=== PATIENT | male | born 1980 | race Caucasian/White ===

== ENCOUNTER → 2019-02-18 12:46 | Outpatient (BNVA) | payer MEDICAID, SELFPAY | PROVIDERS: Family Provider Internal Medicine; PCP Internal Medicine; Visit Provider Nurse Practitioner Psychiatric/Mental Health | DX: F25.1 Schizoaffective disorder, depressive type (principal); F43.12 Post-traumatic stress disorder, chronic; G47.33 Obstructive sleep apnea (adult) (pediatric); F17.210 Nicotine dependence, cigarettes, uncomplicated; F79 Unspecified intellectual disabilities | CPT/HCPCS: 99213 ==

== ENCOUNTER → 2019-02-22 13:52 | Outpatient (BNVA) | payer MEDICAID, SELFPAY | PROVIDERS: Family Provider Internal Medicine; PCP Internal Medicine; Visit Provider Social Worker | DX: F25.1 Schizoaffective disorder, depressive type (principal); F43.12 Post-traumatic stress disorder, chronic; F17.210 Nicotine dependence, cigarettes, uncomplicated | CPT/HCPCS: 90834 ==

== ENCOUNTER → 2019-03-17 10:32 | Outpatient (BNVA) | payer MEDICAID, SELFPAY | PROVIDERS: Family Provider Internal Medicine; PCP Internal Medicine; Visit Provider Social Worker | DX: F25.1 Schizoaffective disorder, depressive type (principal); F43.12 Post-traumatic stress disorder, chronic; F17.210 Nicotine dependence, cigarettes, uncomplicated | CPT/HCPCS: 90834 ==

== ENCOUNTER → 2019-03-29 10:39 | Outpatient (BNVA) | payer MEDICAID, SELFPAY | PROVIDERS: Family Provider Internal Medicine; PCP Internal Medicine; Visit Provider Social Worker | DX: F25.1 Schizoaffective disorder, depressive type (principal); F43.12 Post-traumatic stress disorder, chronic; F17.210 Nicotine dependence, cigarettes, uncomplicated | CPT/HCPCS: 90834 ==

== ENCOUNTER → 2019-04-12 11:00 | Outpatient (BNVA) | payer MEDICAID, SELFPAY | PROVIDERS: Family Provider Internal Medicine; PCP Internal Medicine; Visit Provider Social Worker | DX: F25.1 Schizoaffective disorder, depressive type (principal); F43.12 Post-traumatic stress disorder, chronic; F17.210 Nicotine dependence, cigarettes, uncomplicated | CPT/HCPCS: 90834 ==

== ENCOUNTER → 2019-04-15 10:45 | Outpatient (BNVA) | payer MEDICAID, SELFPAY | PROVIDERS: Family Provider Internal Medicine; PCP Internal Medicine; Visit Provider Nurse Practitioner Psychiatric/Mental Health | DX: F25.1 Schizoaffective disorder, depressive type (principal); F43.12 Post-traumatic stress disorder, chronic; F17.210 Nicotine dependence, cigarettes, uncomplicated; F79 Unspecified intellectual disabilities; Z79.899 Other long term (current) drug therapy | CPT/HCPCS: 99213 ==

== ENCOUNTER → 2019-04-22 11:36 | Outpatient (BNVA) | payer MEDICAID, SELFPAY | PROVIDERS: Family Provider Internal Medicine; PCP Internal Medicine; Visit Provider Nurse Practitioner Psychiatric/Mental Health | DX: Z79.899 Other long term (current) drug therapy (principal) | CPT/HCPCS: 80053; 80061; 83036; 85025 ==

== ENCOUNTER → 2019-04-28 10:35 | Outpatient (BNVA) | payer MEDICAID, SELFPAY | PROVIDERS: Family Provider Internal Medicine; PCP Internal Medicine; Visit Provider Social Worker | DX: F43.12 Post-traumatic stress disorder, chronic (principal); F25.1 Schizoaffective disorder, depressive type; F79 Unspecified intellectual disabilities | CPT/HCPCS: 90834 ==

== ENCOUNTER → 2019-05-13 07:14 | Outpatient (BNVA) | payer MEDICAID, SELFPAY | PROVIDERS: Family Provider Internal Medicine; PCP Internal Medicine; Visit Provider Nurse Practitioner Psychiatric/Mental Health | DX: F43.12 Post-traumatic stress disorder, chronic; F17.210 Nicotine dependence, cigarettes, uncomplicated; F79 Unspecified intellectual disabilities; F25.1 Schizoaffective disorder, depressive type | CPT/HCPCS: 99213 ==

== ENCOUNTER → 2019-06-10 08:13 | Outpatient (BNVA) | payer MEDICAID, SELFPAY | PROVIDERS: Family Provider Internal Medicine; PCP Internal Medicine; Visit Provider Nurse Practitioner Psychiatric/Mental Health | DX: F25.1 Schizoaffective disorder, depressive type (principal); F43.12 Post-traumatic stress disorder, chronic; F17.210 Nicotine dependence, cigarettes, uncomplicated; F79 Unspecified intellectual disabilities | CPT/HCPCS: 99213 ==

== ENCOUNTER → 2019-06-16 09:06 | Outpatient (BNVA) | payer MEDICAID, SELFPAY | PROVIDERS: Family Provider Internal Medicine; Visit Provider Social Worker | DX: F79 Unspecified intellectual disabilities (principal); F43.12 Post-traumatic stress disorder, chronic; F25.1 Schizoaffective disorder, depressive type | CPT/HCPCS: 90832 ==

== ENCOUNTER → 2019-07-08 08:19 | Outpatient (BNVA) | payer MEDICAID, SELFPAY | PROVIDERS: Family Provider Internal Medicine; Visit Provider Nurse Practitioner Psychiatric/Mental Health | DX: F25.1 Schizoaffective disorder, depressive type (principal); F43.12 Post-traumatic stress disorder, chronic; F17.210 Nicotine dependence, cigarettes, uncomplicated; F79 Unspecified intellectual disabilities | CPT/HCPCS: 99213 ==

== ENCOUNTER → 2019-07-14 08:03 | Outpatient (BNVA) | payer MEDICAID, SELFPAY | PROVIDERS: Family Provider Internal Medicine; Visit Provider Social Worker | DX: F25.1 Schizoaffective disorder, depressive type (principal); F43.12 Post-traumatic stress disorder, chronic; F79 Unspecified intellectual disabilities | CPT/HCPCS: 90832 ==

== ENCOUNTER → 2019-07-23 07:47 | Outpatient (BNVA) | payer MEDICAID, SELFPAY | PROVIDERS: Family Provider Internal Medicine; Visit Provider Counselor Mental Health | DX: F79 Unspecified intellectual disabilities (principal); F43.12 Post-traumatic stress disorder, chronic; F25.1 Schizoaffective disorder, depressive type | CPT/HCPCS: 90832 ==

== ENCOUNTER → 2019-07-30 08:03 | Outpatient (BNVA) | payer MEDICAID, SELFPAY | PROVIDERS: Family Provider Internal Medicine; Visit Provider Counselor Mental Health | DX: F43.12 Post-traumatic stress disorder, chronic (principal); F25.1 Schizoaffective disorder, depressive type; F79 Unspecified intellectual disabilities | CPT/HCPCS: 90832 ==

== ENCOUNTER → 2019-08-05 13:06 | Outpatient (BNVA) | payer MEDICAID, SELFPAY | PROVIDERS: Family Provider Internal Medicine; Visit Provider Nurse Practitioner Psychiatric/Mental Health | DX: F43.12 Post-traumatic stress disorder, chronic (principal); F17.210 Nicotine dependence, cigarettes, uncomplicated; F25.1 Schizoaffective disorder, depressive type; F79 Unspecified intellectual disabilities | CPT/HCPCS: 96372; 99214 ==

== ENCOUNTER → 2019-08-09 08:01 | Outpatient (BNVA) | payer MEDICAID, SELFPAY | PROVIDERS: Family Provider Internal Medicine; Visit Provider Counselor Mental Health | DX: F79 Unspecified intellectual disabilities (principal); F43.12 Post-traumatic stress disorder, chronic; F25.1 Schizoaffective disorder, depressive type | CPT/HCPCS: 90832 ==

== ENCOUNTER → 2019-08-17 12:47 | Outpatient (BNVA) | payer MEDICAID, SELFPAY | PROVIDERS: Family Provider Internal Medicine; Visit Provider Counselor Mental Health | DX: F79 Unspecified intellectual disabilities (principal); F43.12 Post-traumatic stress disorder, chronic; F25.1 Schizoaffective disorder, depressive type | CPT/HCPCS: 90832 ==

== ENCOUNTER → 2019-09-02 12:56 | Outpatient (BNVA) | payer MEDICAID, SELFPAY | PROVIDERS: Family Provider Internal Medicine; Visit Provider Nurse Practitioner Psychiatric/Mental Health | DX: F25.1 Schizoaffective disorder, depressive type (principal); F43.12 Post-traumatic stress disorder, chronic; F17.210 Nicotine dependence, cigarettes, uncomplicated; F79 Unspecified intellectual disabilities | CPT/HCPCS: 96372; 99214 ==

== ENCOUNTER → 2019-09-16 08:55 | Outpatient (BNVA) | payer MEDICAID, SELFPAY | PROVIDERS: Family Provider Internal Medicine; Visit Provider Counselor Mental Health | DX: F43.12 Post-traumatic stress disorder, chronic (principal); F25.1 Schizoaffective disorder, depressive type; F79 Unspecified intellectual disabilities | CPT/HCPCS: 90832 ==

== ENCOUNTER → 2019-09-29 09:09 | Outpatient (BNVA) | payer MEDICAID, SELFPAY | PROVIDERS: Family Provider Internal Medicine; Visit Provider Counselor Mental Health | DX: F79 Unspecified intellectual disabilities (principal); F43.12 Post-traumatic stress disorder, chronic; F25.1 Schizoaffective disorder, depressive type | CPT/HCPCS: 90832 ==

== ENCOUNTER → 2019-10-08 09:21 | Outpatient (BNVA) | payer MEDICAID, SELFPAY | PROVIDERS: Family Provider Internal Medicine; Visit Provider Counselor Mental Health | DX: F79 Unspecified intellectual disabilities (principal); F43.12 Post-traumatic stress disorder, chronic; F25.1 Schizoaffective disorder, depressive type | CPT/HCPCS: 90832 ==

== ENCOUNTER → 2019-10-26 08:54 | Outpatient (BNVA) | payer MEDICAID, SELFPAY | PROVIDERS: Family Provider Internal Medicine; Visit Provider Counselor Mental Health | DX: F43.12 Post-traumatic stress disorder, chronic (principal); F25.1 Schizoaffective disorder, depressive type; F79 Unspecified intellectual disabilities | CPT/HCPCS: 90832 ==

== ENCOUNTER → 2019-11-30 08:22 | Outpatient (BNVA) | payer MEDICAID, SELFPAY | PROVIDERS: Family Provider Internal Medicine; Visit Provider Counselor Mental Health | DX: F25.1 Schizoaffective disorder, depressive type (principal); F43.12 Post-traumatic stress disorder, chronic | CPT/HCPCS: 90832 ==

== ENCOUNTER → 2019-12-07 09:18 | Outpatient (BNVA) | payer MEDICAID, SELFPAY | PROVIDERS: Family Provider Internal Medicine; Visit Provider Counselor Mental Health | DX: F43.12 Post-traumatic stress disorder, chronic (principal); F25.1 Schizoaffective disorder, depressive type; F79 Unspecified intellectual disabilities | CPT/HCPCS: 90832 ==

== ENCOUNTER → 2019-12-14 08:31 | Outpatient (BNVA) | payer MEDICAID, SELFPAY | PROVIDERS: Family Provider Internal Medicine; Visit Provider Counselor Mental Health | DX: F79 Unspecified intellectual disabilities (principal); F43.12 Post-traumatic stress disorder, chronic; F25.1 Schizoaffective disorder, depressive type | CPT/HCPCS: 90832 ==

== ENCOUNTER 2022-03-10 19:45 | Emergency (ER) | payer MEDICAID, SELFPAY ==
[2022-03-10 19:49] VITALS: BMI 27.4
--- NOTE | 2022-03-10 19:49 | W.ED.PSYCHS ---
HPI - Psych General: Chief Complaint: Psychiatric Symptoms Stated Complaint: HI Time Seen by Provider: 03/10/22 19:49 History of Present Illness: Mr. Reina is a 42-year-old gentleman with history of schizoaffective disorder, chronic PTSD, intellectual disability resides at the [facility] presenting to the emergency department for nightmares with thoughts of self-harm. These have been going on for about 3 weeks. He denies specific known provoking event. He denies actual intent or specific means/plan to hurt himself. Onset (ago): week(s) History of same: Yes Associated psychiatric symptoms: none Review of Systems General: Reports: 10 or more systems reviewed and unremarkable except in HPI and below PFSH ED PFSH: Medical History Chronic post-traumatic stress disorder Cigarette nicotine dependence Obstructive sleep apnea Schizoaffective disorder, depressive type Unspecified intellectual disabilities Social History Smoking and tobacco status: current every day smoker (12 ciggarettes a day) cigarettes Packs smoked per day: 0.5 Quit status (tobacco): considering quitting Second hand smoke exposure: No Smoking risk assessment/counseling performed?: No Physical Exam Const: COMMON NORMALS: alert GENERAL APPEARANCE: cooperative and well developed HENMT: COMMON NORMALS: normocephalic and atraumatic HEAD & SCALP: normocephalic and atraumatic Eye: COMMON NORMALS: conjunctivae normal CONJUNCTIVA: Yes conjunctivae normal SCLERA: sclerae normal Neck/C-Spine: COMMON NORMALS: supple GENERAL: Yes trachea midline Resp: COMMON NORMALS: normal respiratory effort EFFORT & INSPECTION: Yes able to speak in complete sentences Cardio: COMMON NORMALS: regular rate and regular rhythm RATE: regular rate RHYTHM: regular rhythm GI: COMMON NORMALS: Soft to palpation PALPATION: Yes Soft to palpation and No Tenderness to palpation present (GI) Extremity: GENERAL: Yes normal exam except as noted and No edema Neuro: COMMON NORMALS: moves all extremities SENSORIUM/ORIENTATION: Yes alert and No Orientation impaired Psych: COMMON NORMALS: mental status grossly normal and Normal thought process present THOUGHT PROCESS: Normal thought process present Course Vital Signs: Vital signs: Vital Signs Temperature 98.3 F 03/10/22 19:55 Pulse Rate 74 03/10/22 19:55 Respiratory Rate 16 03/10/22 19:55 Blood Pressure 132/78 03/10/22 19:55 Pulse Oximetry 94 03/10/22 19:55 Oxygen Delivery Me thod 03/10/22 19:55 [facility] - Psych Medical Decision Making 42-year-old gentleman presenting due to thoughts of self-harm with nightmares or more specifically nightmares involving self-harm. Patient is calm and cooperative on exam. No evidence of injuries. Case discussed with psychiatry. Outpatient close follow-up is reasonable. Patient denies actual intent to harm self. Can reportedly have televisit with psychiatrist tomorrow. The results of ED evaluation were discussed with the patient and staff including prescriptions and/or symptomatic cares (if applicable) including appropriate and responsible use, followup plan, and return precautions. The patient and staff verbalized understanding and felt safe for discharge. Medical Records I reviewed the patient's medical records. Lab Data I reviewed the patient's lab results. Discharge Plan Discharge Patient Disposition: Home Clinical Impression: Nightmares, Thoughts of self harm Condition: Stable Prescriptions: New prazosin 1 mg capsule 1 mg PO BEDTIME Qty: 30 0RF No Action buspirone 30 mg tablet 20 mg PO BID benztropine 1 mg tablet 1 mg PO DAILY trazodone 300 mg tablet 300 mg PO DAILY melatonin 5 mg capsule PO cephalexin 500 mg capsule 500 mg PO BID 7 Days Qty: 14 0RF metoprolol succinate [Toprol XL] 50 mg tablet extended release 24 hr 50 mg PO DAILY atorvastatin [Lipitor] 40 mg tablet 40 mg PO .HS fenofibrate nanocrystallized [Tricor] 48 mg tablet 48 mg PO .HS acetaminophen [Tylenol] 325 mg tablet 650 mg PO Q4H PRN ondansetron HCl [Zofran] 4 mg tablet 4 mg PO Q8H Pepto-Bismol Max St 525 mg/15 mL suspension 525 mg PO Q30M PRN loperamide [Anti-Diarrheal (loperamide)] 2 mg capsule 2 mg PO DAILY PRN (Reason: loose stool) omeprazole 20 mg capsule,delayed release(DR/EC) 20 mg PO DAILY ibuprofen 600 mg tablet 600 mg PO Q8H PRN carbamide peroxide [Debrox] 6.5 % drops 5 drop EAR-BOTH DAILY PRN fluticasone propionate [Flonase Allergy Relief] 50 mcg/actuation spray,suspension 2 spray INTRANASAL DAILY dextromethorphan polistirex [Children's Robitussin ER] 30 mg/5 mL suspension,extended rel 12 hr 10 ml PO QID PRN (Reason: cough) calcium carbonate [Tums] 300 mg (750 mg) tablet,chewable 300 mg PO .six times a day PRN (DME) triple antibotic ointment See Rx Instructions .Route .MEDSUPPLY Qty: 1 0RF Rx Instructions: Applied Triple antibiotic ointment to nail beds to keep moisturize. Apply BID for 2 weeks. Discharge Orders: Discharge ED (Routine); Ordered 03/10/22 Ordered By: Tolu Berger Referrals: Bairon Ferrera DO [Primary Care Provider] - Discharge Diet: Usual diet Discharge Activity: Resume usual activity Patient Instructions: PTSD (Post Traumatic Stress Disorder) (ED) Activity Restrictions/Additional Instructions: Thank you for visiting the emergency department. You were seen and evaluated for nightmares involving self-harm. The most likely cause of these nightmares is related to underlying psychiatric disorder. I will prescribe prazosin for management. Please follow-up with your psychiatric provider within the next 2 days. Return to the emergency department for thoughts of hurting yourself or anyone else, or anything else that you are concerned about and feel needs emergency department evaluation. Coding Level of Care Code ED Abrasive Coating Machine Operator for Pavan Morataya
[2022-03-10 19:55] VITALS: BP 132/78; PULSE 74; RESP 16; TEMP 36.8; O2SAT 94
== END 2022-03-10 20:36 | disposition home or self-care (01) ==
PROVIDERS: Emergency Provider Emergency Medicine; PCP Internal Medicine
DX: F51.5 Nightmare disorder (principal); R45.851 Suicidal ideations; F17.210 Nicotine dependence, cigarettes, uncomplicated
CPT/HCPCS: 99283

== ENCOUNTER 2022-12-01 13:07 | Emergency (ER) | payer MEDICAID, SELFPAY ==
[2022-12-01 13:08] VITALS: BP 120/83; PULSE 66; RESP 14; TEMP 36.8; O2SAT 96; BMI 34.3
--- NOTE | 2022-12-01 13:10 | ECG_ITS ---
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 Measurements Intervals [place] Rate: 65 P: 30 ID: [id number] QRS: 3 QRSD: 90 T: 115 QT: 411 QTc: 429 Interpretive Statements SINUS RHYTHM POSSIBLE LEFT ATRIAL ENLARGEMENT [-0.1mV P-WAVE IN V1/V2] POSSIBLE RIGHT VENTRICULAR CONDUCTION DELAY [RSR (QR) IN V1/V2] MODERATE ST DEPRESSION [0.05+ mV ST DEPRESSION] ABNORMAL QRS-T ANGLE [QRS-T AXIS DIFFERENCE > 60] Compared to ECG 03/04/2018 21:13:04 ST (T wave) deviation now present T-wave abnormality no longer present Electronically Signed On 12-02-2022 10:20:57 CDT by Gracy Alan M.D. [id number]
--- NOTE | 2022-12-01 13:14 | XRR_ITS ---
PROCEDURE INFORMATION: Exam: XR Chest Exam date and time: 12/01/2022 2:03 PM Age: 42 years old Clinical indication: Pain; Chest pressure; Additional info: Chest pain TECHNIQUE: Imaging protocol: Radiologic exam of the chest. Views: 1 view. COMPARISON: CR XR chest 1V [id number] 03/04/2018 9:05 PM FINDINGS: Lungs: There is no consolidation. Pleural spaces: There is no pleural effusion or pneumothorax. Heart/Mediastinum: Cardiomediastinal contours are unremarkable given AP technique and scoliosis. Bones/joints: Moderate convex left upper thoracic scoliosis. No visible fracture. XR/XR chest 1V portable [id number] IMPRESSION: No acute findings.
--- NOTE | 2022-12-01 13:20 | ED_ITS ---
HPI - Chest Pain General: Chief Complaint: Chest Pain Stated Complaint: CHEST PAIN Time Seen by Provider: 12/01/22 13:09 History of Present Illness: Patient presents to the ER via EMS with complaints of chest pain that was sharp stabbing substernal nonradiating worse with breathing. Pain started about 9 AM this morning. Patient took ibuprofen without relief. Patient has also had intermittent shortness of breath and nausea, patient was given 4 mg of Zofran and 12.5 mg of Phenergan per EMS. Patient has no known cardiac history, patient is on atorvastatin for lipids, patient is from a long-term type setting. Review of Systems General: Reports: 10 or more systems reviewed and unremarkable except in HPI and below PFSH ED PFSH: Medical History Chronic post-traumatic stress disorder Cigarette nicotine dependence Obstructive sleep apnea Schizoaffective disorder, depressive type Unspecified intellectual disabilities Social History Smoking and tobacco/nicotine status: current every day tobacco/nicotine user (1 2 ciggarettes a day) cigarettes Packs smoked per day: 0.5 Quit status (tobacco/nicotine): considering quitting Second hand smoke exposure: No Physical Exam Const: COMMON NORMALS: no acute distress, average body habitus, patient or iented x3, no limitations, healthy appearing, alert and well nourished HENMT: COMMON NORMALS: normocephalic, atraumatic, hearing grossly normal bi laterally, external ears normal, Normal external nose present, moist oral mucous membranes and oropharynx normal HEAD & SCALP: normocephalic and atraumatic NOSE: Normal external nose present EXTERNAL EAR: Yes external ears normal Neck/C-Spine: COMMON NORMALS: full ROM, no lymphadenopathy, supple, no meningeal signs, no JVD and Thyroid normal THYROID: Thyroid normal Chest: COMMONS NORMALS: normal inspection of the chest; negative for normal palpation of entire chest wall (Tender to palpation reproduces chest pain) Resp: COMMON NORMALS: normal respiratory effort, No retractions, No use of accessory muscles and clear to auscultation bilaterally AUSCULTATION: clear to auscultation bilaterally Cardio: COMMON NORMALS: no JVD, regular rate, regular rhythm, S1 normal heart sound present, S2 normal heart sound present, No gallops present (Cardio), No clicks present (Cardio), No murmurs present (Cardio) and No rub (Cardio) RATE: regular rate RHYTHM: regular rhythm HEART SOUNDS: S1 normal heart sound present and S2 normal heart sound present GI: COMMON NORMALS: Normal to inspection, nondistended, normoactive bowel sounds present, Soft to palpation, non-tender, No hepatosplenomegaly present and no masses PALPATION: Yes Soft to palpation and Yes No hepatosplenomegaly present : COMMON NORMALS: Yes no CVA tenderness BLADDER/KIDNEY EXAM: Yes no CVA tenderness Back/Pelvis: COMMON NORMALS: no CVA tenderness Neuro: COMMON NORMALS: patient oriented x3 SENSORIUM/ORIENTATION: Yes alert MENINGEAL SIGNS: Yes no meningeal signs Course Vital Signs: Vital signs: Vital Signs Temperature 98.3 F 12/01/22 13:08 Pulse Rate 67 12/01/22 13:25 Respiratory Rate 16 12/01/22 13:25 Blood Pressure 120/83 12/01/22 13:25 Pulse Oximetry 96 12/01/22 13:25 Oxygen Delivery Me thod Room Air 12/01/22 13:25 MDM - Chest Pain Medical Decision Making Presented to the ER with complaints of chest pain. Patient was worked up in [facility] cardiac fashion with serial EKGs and serial lab work all of which were benign for acute changes. Patient be discharged back to the facility and is to follow-up with his family practice physician within the next 7 days or sooner as needed for further evaluation and treatment. Differential Diagnosis Unlikely acute massive pulmonary embolism, acute respiratory failure, acute myocardial infarction, cardiac arrest or sudden cardiac Medical Records I reviewed the patient's medical records. Lab Data I reviewed the patient's lab results. 12/01/22 13:28 12/01/22 13:28 Radiology Impressions Chest X-Ray 12/01/22 13:14 IMPRESSION: No acute findings. Laboratory Results WBC 7.16 10^3/uL (3.29-11.43) 12/01/22 13:28 RBC 4.62 10^6/uL (3.85-5.65) 12/01/22 13:28 Hgb 14.10 g/dL (11.27-16.99) 12/01/22 13:28 Hct 43.1 % (37-53) 12/01/22 13:28 MCV 93.3 fl (82-101) 12/01/22 13:28 MCH 30.5 pg (27-33) 12/01/22 13:28 MCHC 32.7 g/dL (30-55) 12/01/22 13:28 RDW 13.4 % (12.1-15.1) 12/01/22 13:28 Plt Count 196 10^3/cmm (157-399) 12/01/22 13:28 MPV 9.4 fL (7.4-10.4) 12/01/22 13:28 Neut % (Auto) 62.8 % 12/01/22 13:28 Lymph % (Auto) 25.8 % 12/01/22 13:28 [place] % (Auto) 9.2 % 12/01/22 13:28 Eos % (Auto) 0.8 % 12/01/22 13:28 Baso % (Auto) 0.7 % 12/01/22 13:28 Neut # (Auto) 4.49 10^3/uL (1.8-7.7) 12/01/22 13:28 Lymph # (Auto) 1.9 10^3/uL (0.8-4.8) 12/01/22 13:28 [place] # (Auto) 0.7 10^3/uL (0.2-0.9) 12/01/22 13:28 Eos # (Auto) 0.1 10^3/uL (0.0-0.8) 12/01/22 13:28 Baso # (Auto) 0.1 10^3/uL (0.0-0.1) 12/01/22 13:28 Nucleated RBC % (auto) 0 % 12/01/22 13:28 Nucleated RBCs # 0.0 /100WBC 12/01/22 13:28 Sodium 133 mmol/L (136-145) L 12/01/22 13:28 Potassium 4.2 mmol/L (3.5-5.1) 12/01/22 13:28 Chloride 98 mmol/L (98-107) 12/01/22 13:28 Carbon Dioxide 28 mmol/L (22-29) 12/01/22 13:28 Anion Gap 11.2 (5-19) 12/01/22 13:28 BUN 17 mg/dL (6-20) 12/01/22 13:28 Creatinine 1.2 mg/dL (0.7-1.2) 12/01/22 13:28 GFR Calculation 66.7 mL/min (90-130) L 12/01/22 13:28 Glucose 108 mg/dL (65-115) 12/01/22 13:28 Calculated Osmolality 278 mOsm/kg (285-295) L 12/01/22 13:28 Calcium 9.2 mg/dL (8.5-10.5) 12/01/22 13:28 Total Bilirubin 0.2 mg/dL (0.15-1.2) 12/01/22 13:28 AST 23 U/L (0-40) 12/01/22 13:28 ALT 31 U/L (0-41) 12/01/22 13:28 Alkaline Phosphatase 51 U/L (40-130) 12/01/22 13:28 Troponin T Baseline < 6 ng/L (0-15) 12/01/22 13:28 Troponin T 120 Minute 6.0 ng/L (0-15) 12/01/22 15:15 Delta Troponin T 0.00902 ABS# (0-10) 12/01/22 15:15 Total Protein 6.2 g/dL (6.6-8.7) L 12/01/22 13:28 Albumin 4.3 g/dL (3.5-5.2) 12/01/22 13:28 Globulin 1.9 g/dL (1.3-4.6) 12/01/22 13:28 All radiology interpretation(s) finalized by discharge EKG Data EKG 1: I personally reviewed and interpreted this EKG as follows: EKG interpretation date: 12/01/22 EKG interpretation time: 13:10 Prior EKG tracings: not available for review Interpretation: EKG shows ventricular rate 65 beats minute, IL interval 138, QRS duration 90, QTc of 422, sinus rhythm, possible left atrial lodgment, possible right ventricular conduction delay, moderate ST depression EKG 2: I personally reviewed and interpreted this EKG as follows: EKG interpretation date: 12/01/22 EKG interpretation time: 15:23 Prior EKG tracings: available for review Interpretation: EKG showed ventricular rate 57 bpm, IL interval 162, QRS duration 86, QTc of 426, sinus bradycardia, nonspecific T wave abnormality, possible right ventricular conduction delay Discharge Plan Discharge Patient Disposition: Home Clinical Impression: Atypical chest pain Chest pain Qualifiers: Chest pain type: chest pain on breathing Qualified Code(s): R07.1 - Chest pain on breathing Condition: Stable Prescriptions: No Action buspirone 30 mg tablet 20 mg PO BID benztropine 1 mg tablet 1 mg PO DAILY trazodone 300 mg tablet 300 mg PO DAILY melatonin 5 mg capsule PO cephalexin 500 mg capsule 500 mg PO BID 7 Days Qty: 14 0RF metoprolol succinate [Toprol XL] 50 mg tablet extended release 24 hr 50 mg PO DAILY atorvastatin [Lipitor] 40 mg tablet 40 mg PO .HS fenofibrate nanocrystallized [Tricor] 48 mg tablet 48 mg PO .HS acetaminophen [Tylenol] 325 mg tablet 650 mg PO Q4H PRN ondansetron HCl [Zofran] 4 mg tablet 4 mg PO Q8H Pepto-Bismol Max St 525 mg/15 mL suspension 525 mg PO Q30M PRN loperamide [Anti-Diarrheal (loperamide)] 2 mg capsule 2 mg PO DAILY PRN (Reason: loose stool) omeprazole 20 mg capsule,delayed release(DR/EC) 20 mg PO DAILY ibuprofen 600 mg tablet 600 mg PO Q8H PRN carbamide peroxide [Debrox] 6.5 % drops 5 drop EAR-BOTH DAILY PRN fluticasone propionate [Flonase Allergy Relief] 50 mcg/actuation spray,suspension 2 spray INTRANASAL DAILY dextromethorphan polistirex [Children's Robitussin ER] 30 mg/5 mL suspension,extended rel 12 hr 10 ml PO QID PRN (Reason: cough) calcium carbonate [Tums] 300 mg (750 mg) tablet,chewable 300 mg PO .six times a day PRN (DME) triple antibotic ointment See Rx Instructions .Route .MEDSUPPLY Qty: 1 0RF Rx Instructions: Applied Triple antibiotic ointment to nail beds to keep moisturize. Apply BID for 2 weeks. prazosin 1 mg capsule 1 mg PO BEDTIME Qty: 30 0RF Discharge Orders: Discharge ED (Routine); Ordered 12/01/22 Ordered By: Wesley Glover Referrals: Ferrera,Bairon Reji, DO [Primary Care Provider] - 1 week Patient Instructions: Chest Pain (ED) Activity Restrictions/Additional Instructions: Please follow-up with your family practice physician within the next 7 days for further evaluation and treatment. If your chest pain returns and/or worsens please return to the ER. Coding Level of Care Code ED Medical Transcription Editor for Pavan Morataya
[2022-12-01 13:25] VITALS: BP 120/83; PULSE 67; RESP 16; O2SAT 96
[2022-12-01 13:41] LABS: Basophils # 0.1 10^3/uL (0.0-0.1); Basophils % 0.7 %; Eosinophils # 0.1 10^3/uL (0.0-0.8); Eosinophils % 0.8 %; Hematocrit 43.1 % (37-53); Lymphocytes # 1.9 10^3/uL (0.8-4.8); Lymphocytes % 25.8 %; Mean Corpuscular HGB Conc 32.7 g/dL (30-55); Mean Corpuscular Hemoglobin 30.5 pg (27-33); Mean Corpuscular Volume 93.3 fl (82-101); Mean Platelet Volume 9.4 fL (7.4-10.4); Monocytes # 0.7 10^3/uL (0.2-0.9); Monocytes % 9.2 %; Neutrophils # 4.49 10^3/uL (1.8-7.7); Neutrophils % 62.8 %; Nucleated Red Blood Cells % 0 %; Platelet Count 196 10^3/cmm (157-399); Red Blood Count 4.62 10^6/uL (3.85-5.65); Red Cell Distribution Width 13.4 % (12.1-15.1); White Blood Count 7.16 10^3/uL (3.29-11.43)
[2022-12-01 14:04] LABS: Alanine Aminotransferase 31 U/L (0-41); Albumin Level 4.3 g/dL (3.5-5.2); Alkaline Phosphatase 51 U/L (40-130); Anion Gap 11.2 (5-19); Aspartate Amino Transferase 23 U/L (0-40); Blood Urea Nitrogen 17 mg/dL (6-20); Calcium 9.2 mg/dL (8.5-10.5); Carbon Dioxide 28 mmol/L (22-29); Chloride 98 mmol/L (98-107); Globulin 1.9 g/dL (1.3-4.6); Glomerular Filtration Rate 66.7 mL/min (90-130); Glucose 108 mg/dL (65-115); Osmolality Calculated 278 mOsm/kg (285-295); Potassium 4.2 mmol/L (3.5-5.1); Sodium 133 mmol/L (136-145); Total Bilirubin 0.2 mg/dL (0.15-1.2); Total Protein 6.2 g/dL (6.6-8.7)
[2022-12-01 14:06] LABS: Troponin(5th) Baseline < 6 ng/L (0-15)
--- NOTE | 2022-12-01 14:24 | PC.PHAR ---
UNABLE TO OBTAIN MED LIST FROM FACILITY. Azeem [facility]. [phone]. LEFT MESSAGE WITH PLOW MECHANIC HEIDI BRENNAN [phone]. [employer] [phone] IS UNAVAILABLE.
--- NOTE | 2022-12-01 15:23 | ECG_ITS ---
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 Measurements Intervals [place] Rate: 57 P: 41 PA: 162 QRS: 19 QRSD: 86 T: 70 QT: 431 QTc: 423 Interpretive Statements SINUS BRADYCARDIA POSSIBLE RIGHT VENTRICULAR CONDUCTION DELAY [RSR (QR) IN V1/V2] NONSPECIFIC T-WAVE ABNORMALITY Compared to ECG 12/01/2022 13:10:26 T-wave abnormality now present Sinus rhythm no longer present ST (T wave) deviation no longer present Electronically Signed On 12-02-2022 10:49:31 CDT by Gracy Alan M.D. [id number]
[2022-12-01 15:58] LABS: Troponin 5 2HR Delta 0.00001 ABS# (0-10)
[2022-12-01 16:40] VITALS: BP 120/83; PULSE 67; RESP 16; O2SAT 96
== END 2022-12-01 16:41 | disposition home or self-care (01) ==
PROVIDERS: Emergency Provider Emergency Medicine; PCP Internal Medicine
DX: R07.89 Other chest pain (principal); R07.1 Chest pain on breathing; F17.210 Nicotine dependence, cigarettes, uncomplicated
CPT/HCPCS: 36415; 71045; 80053; 84484; 85025; 93005; 99285

== ENCOUNTER 2022-12-11 10:15 | Emergency (ER) | payer MEDICAID, SELFPAY ==
[2022-12-11 10:16] VITALS: BP 112/55; PULSE 90; RESP 17; TEMP 36.6; O2SAT 96; BMI 34.7
--- NOTE | 2022-12-11 10:29 | CT_ITS ---
WS: [id number] CT ABDOMEN PELVIS TECHNIQUE: Contrast-enhanced CT of the abdomen and pelvis with coronal and sagittal reformatted image s. CLINICAL INFORMATION: Pancreatitis COMPARISON: None. DLP: 919.[address] scans at [facility] use at least one of these dose optimization techniques: automated e xposure control; mA and/or kV adjustment per patient size (includes targeted exams where dose is matc hed to clinical indication); or iterative reconstruction. FINDINGS: Suspected cholecystitis with diffuse gallbladder enhancement with surrounding fluid or developing abs cess. This involves the gallbladder fossa and extends slightly into the liver. Early suspected hepati c abscess formation Prominent gallstones within the abnormal gallbladder with the largest stone at the gallbladder neck m easuring 10 mm. In addition, faint calculus or sludge within the common bile duct at the level of the pancreatic head series 3 image 37. Recommend further evaluation with ERCP. In addition diffuse thickening and enhancement of on the common bile duct suspicious for cholangitis. No free air. Portal vein is patent. Splenic vein is patent. Inflammatory stranding and edema at the inferior aspect of the gallbladder fossa. Loss of the flow fa t plane with mass effect and compression of the traversing duodenum. Patient at risk for cholecystodu odenal fistula. Air-fluid level in the stomach. Mild edema at the head of the pancreas suspicious for gallstone pancreatitis Diffuse fatty filtration of the liver. Mild hepatomegaly. Trace pleural fluid. Bibasilar atelectasis. Normal spleen. Dysplastic and atrophic LEFT kidney. Multiple RIGHT renal cysts. Normal caliber abdominal aorta. Tracey ac and SMA are patent. Multiple reactive lymph nodes in the upper abdomen and central mesentery. A fe w prominent periaortic and aortocaval lymph nodes likely reactive. Normal appendix in the RIGHT lower quadrant. IMPRESSION: 1. Acute complex cholecystitis with lobulated and enhancing gallbladder with surrounding fluid. Susp ected perforation with early hepatic abscess formation. 2. Prominent gallstone at the gallbladder neck with suspected small calculus or sludge within the co mmon bile duct. Series 3 image 37 3. In addition, diffuse thickening and enhancement of the common bile duct suspicious for cholangiti s. 4. Inflammatory stranding and edema in the gallbladder fossa with adjacent involvement of the ambrocio sing duodenum with compression. Patient at risk for cholecystoduodenal fistula. Air-fluid level in th e stomach. 5. Mild edema at the head of the pancreas suspicious for gallstone pancreatitis. 6. Atrophic dysplastic LEFT kidney. Bilateral renal cysts. 7. Small bilateral pleural effusions with bibasilar atelectasis. 8. Reactive lymph nodes in the upper abdomen and central mesentery. Additional prominent aortocaval and periaortic lymph nodes likely reactive. Notified Shen Loja MD at 12/11/2022 11:40 AM.
[2022-12-11] MEDS: iohexol 350 mg/mL 500 mL Btl (per mL) IV (10:35)
[2022-12-11] MEDS: sodium chloride 0.9% 1,000 ML 999 ML IV (10:50)
[2022-12-11 10:58] LABS: Hematocrit 31.6 % (37-53); Mean Corpuscular HGB Conc 35.1 g/dL (30-55); Mean Corpuscular Hemoglobin 30.5 pg (27-33); Mean Corpuscular Volume 86.8 fl (82-101); Mean Platelet Volume 9.4 fL (7.4-10.4); Platelet Count 288 10^3/cmm (157-399); Red Blood Count 3.64 10^6/uL (3.85-5.65); Red Cell Distribution Width 14.6 % (12.1-15.1); White Blood Count 17.61 10^3/uL (3.29-11.43)
--- NOTE | 2022-12-11 11:14 | PC.PHAR ---
PT IS FROM [facility]. [phone]. NURSE LIZBET CANNON [phone]. 12/11/22
[2022-12-11 11:17] LABS: Alanine Aminotransferase 125 U/L (0-41); Albumin Level 2.3 g/dL (3.5-5.2); Alkaline Phosphatase 351 U/L (40-130); Anion Gap 13.8 (5-19); Aspartate Amino Transferase 131 U/L (0-40); Blood Urea Nitrogen 17 mg/dL (6-20); Calcium 7.1 mg/dL (8.5-10.5); Carbon Dioxide 22 mmol/L (22-29); Chloride 101 mmol/L (98-107); Glomerular Filtration Rate 124.3 mL/min (90-130); Glucose 105 mg/dL (65-115); Osmolality Calculated 280 mOsm/kg (285-295); Sodium 134 mmol/L (136-145); Total Bilirubin 3.8 mg/dL (0.15-1.2); Total Protein 5.3 g/dL (6.6-8.7)
[2022-12-11 11:20] LABS: Potassium 2.8 mmol/L (3.5-5.1)
[2022-12-11 11:42] LABS: Absolute Segmented Neutrophil 14.1 10/cmm (1.6-7.1); Band Neutrophils Absolute 0.2 10^3/cmm (0.0-1.2); Segmented Neutrophils 80 %; Slide Review Slide Review Perform; Total Cells Counted 100 (0-100)
[2022-12-11 11:43] LABS: Absolute Neutrophil 14.3 10^3/cmm (1.4-6.5); Anisocytosis 1+; Eosinophils 0 %; Giant Platelets 1+; Lymphocytes 10 %; Lymphocytes Absolute 2.6 10^3/cmm (1.2-3.4); Monocytes Absolute 0.4 10^3/cmm (0.1-0.6); Platelet Estimate Increased (Normal); Polychromasia 1+; Smudge Cells 2+; Stomatocytes 1+
[2022-12-11] MEDS: piperacillin-tazobactam 4.5 GM in sodium chloride 0.9% (plus) 50 ML IV ×2 (11:49→17:37)
--- NOTE | 2022-12-11 12:06 | ED_ITS ---
HPI - Recheck/Abnormal Lab/Rx General: Chief Complaint: Recheck/Abnormal Lab/Rx Stated Complaint: was sent over by Dinh Time Seen by Provider: 12/11/22 10:17 History of Present Illness: This patient is a 42-year-old white male who was sent to the emergency department from the clinic. Evidently the patient had abnormal labs at the clinic including liver function tests and lipase. Patient went to the clinic because he was having some epigastric and chest discomfort. Patient has had these symptoms for over a week now. He has not had any nausea or vomiting. No constipation or diarrhea. No fever. Patient has a history of an intellectual disability, unspecified and schizoaffective disorder. Review of Systems General: Reports: 10 or more systems reviewed and unremarkable except in HPI and below Card: Reports: chest pain GI: Reports: abdominal pain PFS ED PFSH: Medical History Chronic post-traumatic stress disorder Cigarette nicotine dependence Obstructive sleep apnea Schizoaffective disorder, depressive type Unspecified intellectual disabilities Social History Smoking and tobacco/nicotine status: current every day tobacco/nicotine user (12 ciggarettes a day) cigarettes Packs smoked per day: 0.5 Quit status (tobacco/nicotine): considering quitting Second hand smoke exposure: No Physical Exam Const: COMMON NORMALS: no acute distress, patient oriented x3 and no limitations GENERAL APPEARANCE: cooperative and comfortable HENMT: COMMON NORMALS: normocephalic, atraumatic, Normal nasal mucous membranes and turbinates present, moist oral mucous membranes and oropharynx normal HEAD & SCALP: normal to inspection, normocephalic and atraumatic FACE & SINUS: normal facial exam NOSE: Normal nasal mucous membranes and turbinates present Eye: COMMON NORMALS: Equal, round and reactive pupils present, EOMs intact bilaterally and conjunctivae normal GENERAL EYE: appearance normal, both eyes and all related structures CONJUNCTIVA: Yes conjunctivae normal PUPIL: Yes Equal, round and reactive pupils present Neck/C-Spine: COMMON NORMALS: supple and no JVD Chest: COMMONS NORMALS: normal inspection of the chest Resp: COMMON NORMALS: normal respiratory effort and clear to auscultation bilaterally AUSCULTATION: clear to auscultation bilaterally Cardio: COMMON NORMALS: no JVD, regular rate, regular rhythm, No gallops present (Cardio), No murmurs present (Cardio) and No rub (Cardio) RATE: regular rate RHYTHM: regular rhythm GI: COMMON NORMALS: Soft to palpation AUSCULTATION: Yes normoactive bowel sounds PALPATION: Yes Soft to palpation OTHER: Mild discomfort to deep palpation in the epigastric and right upper quadrant areas. : COMMON NORMALS: Yes no CVA tenderness BLADDER/KIDNEY EXAM: Yes no CVA tenderness Back/Pelvis: COMMON NORMALS: no CVA tenderness and thoracic and lumbar spine normal to inspection Extremity: COMMON NORMALS: normal to inspection Neuro: COMMON NORMALS: patient oriented x3 and CN's II-XII intact bilaterally Psych: COMMON NORMALS: mental status grossly normal, Normal thought process present and cooperative THOUGHT PROCESS: Normal thought process present Skin: COMMON NORMALS: no rashes or lesions noted, turgor normal and no jaundice GENERAL SKIN EXAM: no rashes or lesions noted and turgor normal Course Vital Signs: Vital signs: Vital Signs Temperature 97.8 F 12/11/22 10:16 Pulse Rate 90 12/11/22 10:16 Respiratory Rate 17 12/11/22 10:16 Blood Pressure 112/55 12/11/22 10:16 Pulse Oximetry 96 12/11/22 10:16 Oxygen Delivery Me thod Room Air 12/11/22 10:16 MDM - Recheck/Abnormal Lab/Rx Medical Decision Making I did review the laboratory studies from the clinic. The lipase was greater than 6000 and the liver function tests were elevated. He had a white count of 22,000. Repeat laboratory studies here reveal a white blood cell count of 17.6, hemoglobin 11.1. Potassium 2.8, total bilirubin 3.8, ALT 125, AST 131, alk phos 351, lipase greater than 4300. CT scan of the abdomen pelvis was read by the radiologist. The gallbladder is severely inflamed with possible perforation/abscess into the liver. There are multiple stones in the gallbladder and there is a stone in the gallbladder neck. Common bile duct is dilated. Possible early fistula formation of the gallbladder and duodenum. I had initially contacted [facility]. The surgeon there reviewed the images and recommended a facility that has hepatobiliary surgery. Currently waiting to hear back from [facility]. Patient was given 4.5 g of Zosyn IV as well as 20 mEq of potassium chloride over 2 hours[address] He is stable[address] Dr. Curtis, surgeon from [facility] in [place] has excepted the patient. Patient will be transferred as soon as a bed is available and we have transportation. He is stable. Lab Data 12/11/22 10:47 12/11/22 10:47 Laboratory Results WBC 17.61 10^3/uL (3.29-11.43) H 12/11/22 10:47 RBC 3.64 10^6/uL (3.85-5.65) L 12/11/22 10:47 Hgb 11.10 g/dL (11.27-16.99) L 12/11/22 10:47 Hct 31.6 % (37-53) L 12/11/22 10:47 MCV 86.8 fl (82-101) 12/11/22 10:47 MCH 30.5 pg (27-33) 12/11/22 10:47 MCHC 35.1 g/dL (30-55) 12/11/22 10:47 RDW 14.6 % (12.1-15.1) 12/11/22 10:47 Plt Count 288 10^3/cmm (157-399) 12/11/22 10:47 MPV 9.4 fL (7.4-10.4) 12/11/22 10:47 Lymph % (Auto) Not Reportable 12/11/22 10:47 [place] % (Auto) Not Reportable 12/11/22 10:47 Lymph # (Auto) Not Reportable 12/11/22 10:47 [place] # (Auto) Not Reportable 12/11/22 10:47 Total Counted 100 (0-100) 12/11/22 10:47 Atypical Lymphs % 5.0 % (0-5) 12/11/22 10:47 Absolute Neutrophils 14.3 10^3/cmm (1.4-6.5) H 12/11/22 10:47 Segmented Neutrophils 80 % 12/11/22 10:47 Abs Segm Neuts (Man) 14.1 10/cmm (1.6-7.1) H 12/11/22 10:47 Band Neutrophils 1.0 % 12/11/22 10:47 Abs Band Neuts (Man) 0.2 10^3/cmm (0.0-1.2) 12/11/22 10:47 Absolute Lymphocytes 2.6 10^3/cmm (1.2-3.4) 12/11/22 10:47 Lymphocytes (Manual) 10 % 12/11/22 10:47 Monocytes (Manual) 2.0 % 12/11/22 10:47 Absolute Monocytes 0.4 10^3/cmm (0.1-0.6) 12/11/22 10:47 Eosinophils (Manual) 0 % 12/11/22 10:47 Absolute Eosinophils 0.0 10^3/cmm (0.0-0.7) 12/11/22 10:47 Basophils (Manual) 0.0 % 12/11/22 10:47 Absolute Basophils 0.0 10^3/cmm (0.0-0.2) 12/11/22 10:47 Metamyelocytes 1.0 % 12/11/22 10:47 Myelocytes 1.0 % 12/11/22 10:47 Smudge Cells 2+ H 12/11/22 10:47 Platelet Estimate Increased (Normal) 12/11/22 10:47 Giant Platelets 1+ H 12/11/22 10:47 Polychromasia 1+ H 12/11/22 10:47 Anisocytosis 1+ H 12/11/22 10:47 Stomatocytes 1+ H 12/11/22 10:47 Sodium 134 mmol/L (136-145) L 12/11/22 10:47 Potassium 2.8 mmol/L (3.5-5.1) L* 12/11/22 10:47 Chloride 101 mmol/L (98-107) 12/11/22 10:47 Carbon Dioxide 22 mmol/L (22-29) 12/11/22 10:47 Anion Gap 13.8 (5-19) 12/11/22 10:47 BUN 17 mg/dL (6-20) 12/11/22 10:47 Creatinine 0.7 mg/dL (0.7-1.2) 12/11/22 10:47 GFR Calculation 124.3 mL/min (90-130) 12/11/22 10:47 Glucose 105 mg/dL (65-115) 12/11/22 10:47 Calculated Osmolality 280 mOsm/kg (285-295) L 12/11/22 10:47 Calcium 7.1 mg/dL (8.5-10.5) L 12/11/22 10:47 Total Bilirubin 3.8 mg/dL (0.15-1.2) H 12/11/22 10:47 AST 131 U/L (0-40) H 12/11/22 10:47 ALT 125 U/L (0-41) H 12/11/22 10:47 Alkaline Phosphatase 351 U/L (40-130) H 12/11/22 10:47 Total Protein 5.3 g/dL (6.6-8.7) L 12/11/22 10:47 Albumin 2.3 g/dL (3.5-5.2) L 12/11/22 10:47 Globulin 3.0 g/dL (1.3-4.6) 12/11/22 10:47 Lipase > 4298 U/L (13-60) H 12/11/22 10:47 All radiology interpretation(s) finalized by discharge Discharge Plan Discharge Condition: Stable Prescriptions: No Action buspirone 30 mg tablet 20 mg PO BID benztropine 1 mg tablet 1 mg PO BEDTIME metoprolol succinate [Toprol XL] 50 mg tablet extended release 24 hr 50 mg PO QAM atorvastatin [Lipitor] 40 mg tablet 40 mg PO BEDTIME fenofibrate nanocrystallized [Tricor] 48 mg tablet 48 mg PO BEDTIME acetaminophen [Tylenol] 325 mg tablet 650 mg PO Q6H PRN (Reason: pain of fever) omeprazole 20 mg capsule,delayed release(DR/EC) 20 mg PO QAM ibuprofen 600 mg tablet 600 mg PO Q8H PRN (Reason: Pain) fluticasone propionate [Flonase Allergy Relief] 50 mcg/actuation spray,suspension 2 spray INTRANASAL QAM (DME) triple antibotic ointment See Rx Instructions .Route .MEDSUPPLY Qty: 1 0RF Rx Instructions: Applied Triple antibiotic ointment to nail beds to keep moisturize. Apply BID for 2 weeks. lamotrigine 200 mg tablet 200 mg PO BID sertraline 100 mg tablet See Rx Instructions .ROUTE .COMPLEX Rx Instructions: 100 mg orally by mouth at 8 am and 8 pm Robitussin-DM 10-100 mg/5 mL Syrup 10 ml PO Q4H PRN (Reason: Cough) aspirin 81 mg tablet,delayed release (DR/EC) 81 mg PO QAM trazodone 150 mg tablet 150 mg PO BEDTIME docusate sodium 100 mg capsule 100 mg PO .COMPLE Rx Instructions: Take 1 capsule by mouth at 8 am and 8 pm Stomach Relief 262 mg Tablet 262 mg PO QID PRN (Reason: UPSET STOMACH) Tums 500 500 mg calcium (1,250 mg) Tablet,Chewable 1,000 mg PO Q6H PRN (Reason: Indigestion) prazosin 2 mg capsule 2 mg PO QPM paliperidone palmitate 156 mg/mL Syringe 156 mg IM Q28D Referrals: Bairon Ferrera DO [Primary Care Provider] - Coding Level of Care Code ED Certified Personal Finance Counselor for Pavan Morataya
[2022-12-11] MEDS: potassium chloride premix 100 ML 50 MEQ IV (14:06)
[2022-12-11] MEDS: nicotine 14 mg Patch 1 PATCH TRANSDERMA (18:02)
[2022-12-11 18:56] VITALS: BP 101/57; PULSE 53; RESP 18; O2SAT 96
--- NOTE | 2022-12-11 19:16 | PC.NURSE ---
Nicotine patch placed at 1802 by LORENZO Bobo. Patch is still in place at this time.
[2022-12-11 20:08] VITALS: BP 104/65; PULSE 60; RESP 16; O2SAT 96
[2022-12-11 21:09] VITALS: BP 122/61; PULSE 57; RESP 16; O2SAT 98
[2022-12-11 21:40] LABS: Lactic Sepsis W/Reflex 0.5 mmol/L (0.5-2.2)
[2022-12-11 22:06] VITALS: BP 144/93; PULSE 68; RESP 16; O2SAT 97
[2022-12-11 23:54] VITALS: BP 127/75; PULSE 66; RESP 16; O2SAT 98
[2022-12-12 00:30] VITALS: BP 127/75; PULSE 66; RESP 16; TEMP 36.6; O2SAT 98
== END 2022-12-12 00:31 | disposition short-term general hospital (02) ==
PROVIDERS: Emergency Medicine; Emergency Provider Emergency Medicine; PCP Internal Medicine
DX: R10.13 Epigastric pain (principal); R07.89 Other chest pain; Z79.82 Long term (current) use of aspirin; F17.210 Nicotine dependence, cigarettes, uncomplicated; K83.09 Other cholangitis
CPT/HCPCS: 36415; 74177; 80053; 83605; 83690; 85007; 85025; 96365; 96375; 99285; J2543; J3480; J7030; Q9967

== ENCOUNTER 2022-12-26 07:48 | Emergency (ER) | payer MEDICAID, SELFPAY ==
[2022-12-26 07:51] VITALS: BP 118/77; PULSE 96; TEMP 36.9; O2SAT 95; BMI 34.3
--- NOTE | 2022-12-26 07:52 | XR_ITS ---
WS: [id number] Exam: XR chest 1V portable [id number] Date/Time of Exam: 12/26/2022 8:11 AM Reason For Exam: dyspnea/cough Comparison 12/01/2022. The lungs are fully expanded and clear. Cardiomediastinal silhouette is unremarkable. Angular levosco liosis of the upper T-spine causes some chest deformity. No pleural effusions or pneumothorax. Remain ing bony structures are intact. IMPRESSION: 1. No acute cardiopulmonary process.
--- NOTE | 2022-12-26 07:53 | ED_ITS ---
HPI - Abdominal Pain General: Chief Complaint: Syncope Stated Complaint: Syncope/ Infection post-op Time Seen by Provider: 12/26/22 07:52 Source: patient Mode of arrival: ambulatory History of Present Illness: 42-year-old male recently presented to the emergency room on December 11 with what was found to be a sending cholangitis. Arrangements were made for transfer to [place] however that was going to be several days before a bed is available patient was then accepted at [facility] and transferred there. He had surgery within a few days arriving and really does not remember exactly when. Patient does have an intellectual disability. He returned home and he is supposed to follow-up with Dr. Hi this morning he went outside to smoke a cigarette he states he went around the side of his house to urinate and then got lightheaded and dizzy and passed out. He has abdominal wall tenderness redness around the incision sites particularly around a drain site with slight purulent drainage around the edges of that he cannot recall exactly when this started he denies fever at home denies shortness of breath denies dysuria urgency or frequency. MD elicited complaint: abdominal pain Location: Diffuse Severity: moderate Quality: cramping Exacerbating factors: nothing Relieving factors: nothing Associated Symptoms: Reports nausea; Denies anorexia, belching, bloating, change in bowel habits, change in stool character, chills, coffee ground emesis, constipation, GI cramping, diarrhea, dyspepsia, dysuria, excessive flatus, fever(s), heartburn, hematochezia, hematuria, hematemesis, fecal incontinence, loose stools, melena, poor appetite, syncope and vomiting Review of Systems Const: Denies: fever(s) or chills Card: Denies: chest pain or syncope Resp: Denies: dyspnea GI: Reports: abdominal pain and nausea; Denies: vomiting, hematemesis, coffee ground emesis, heartburn, diarrhea, constipation, bloating, GI cramping, belching, excessive flatus, fecal incontinence, change in bowel habits, change in stool character, hematochezia or melena : Denies: dysuria, urinary frequency, urinary urgency or hematuria Musc: Denies: neck pain or back pain Skin/Breast: Denies: rash PFSH ED PFSH: Medical History Chronic post-traumatic stress disorder Cigarette nicotine dependence Obstructive sleep apnea Schizoaffective disorder, depressive type Unspecified intellectual disabilities Social History Smoking and tobacco/nicotine status: current every day tobacco/nicotine user (12 ciggarettes a day) cigarettes Packs smoked per day: 0.5 Quit status (tobacco/nicotine): considering quitting Second hand smoke exposure: No Physical Exam Const: GENERAL APPEARANCE: cooperative and comfortable ORIENTATION/CONSCIOUSNESS: Yes awake, Yes oriented to person, Yes oriented to place and Yes oriented to time HENMT: COMMON NORMALS: normocephalic, atraumatic and hearing grossly normal bilaterally HEAD & SCALP: normocephalic and atraumatic Resp: COMMON NORMALS: normal respiratory effort, No retractions, No use of accessory muscles and clear to auscultation bilaterally AUSCULTATION: clear to auscultation bilaterally Cardio: COMMON NORMALS: regular rate, regular rhythm and No murmurs present (Cardio) RATE: regular rate RHYTHM: regular rhythm GI: COMMON NORMALS: Soft to palpation and No hepatosplenomegaly present AUSCULTATION: Yes normoactive bowel sounds PALPATION: Yes Soft to palpation, No Tenderness to palpation present (GI), No Guarding due to palpation present (GI) and Yes No hepatosplenomegaly present OTHER: Redness and erythema benton-incisional extending around both the drain and the midline incision karena still in place right upper quadrant drain suspect from the gallbladder bed has serosanguineous fluid within the suction bulb which was collected and cultured. Tenderness with palpation around the incision and the drain site slight purulent drainage from the drain site. Bowel sounds positive Extremity: COMMON NORMALS: normal to inspection, capillary refill normal, no clubbing, cyanosis or edema, no calf tenderness and no pedal edema Neuro: SENSORIUM/ORIENTATION: Yes oriented to person, Yes oriented to place and Yes oriented to time Skin: COMMON NORMALS: no rashes or lesions noted GENERAL SKIN EXAM: no rashes or lesions noted Course Vital Signs: Vital signs: Vital Signs Temperature 98.5 F 12/26/22 07:51 Pulse Rate 96 12/26/22 07:51 Respiratory Rate 18 12/26/22 08:13 Blood Pressure 118/79 12/26/22 08:13 Pulse Oximetry 98 12/26/22 08:13 Oxygen Delivery Me thod Room Air 12/26/22 08:13 MDM - Abdominal Pain Medical Decision Making Labs and imaging reviewed no significant finding. Patient has follow-up with Dr. Hi this morning. We will discharge him there. This morning episodes seem to be orthostatic syncope. He does have a little bit of superficial redness around the incision sites particular the drain will start on Bactrim for this. Return if is further problems discharged from the ER to the follow-up appointment with Dr. Hi as scheduled. Medical Records I reviewed the patient's medical records. Lab Data I reviewed the patient's lab results. 12/26/22 08:14 12/26/22 08:14 Labs/Radiology: Laboratory Results WBC 11.44 10^3/uL (3.29-11.43) H 12/26/22 08:14 RBC 3.68 10^6/uL (3.85-5.65) L 12/26/22 08:14 Hgb 11.00 g/dL (11.27-16.99) L 12/26/22 08:14 Hct 36.0 % (37-53) L 12/26/22 08:14 MCV 97.8 fl (82-101) 12/26/22 08:14 MCH 29.9 pg (27-33) 12/26/22 08:14 MCHC 30.6 g/dL (30-55) 12/26/22 08:14 RDW 16.1 % (12.1-15.1) H 12/26/22 08:14 Plt Count 272 10^3/cmm (157-399) 12/26/22 08:14 MPV 9.4 fL (7.4-10.4) 12/26/22 08:14 Neut % (Auto) 78.4 % 12/26/22 08:14 Lymph % (Auto) 8.8 % 12/26/22 08:14 [place] % (Auto) 11.4 % 12/26/22 08:14 Eos % (Auto) 0.1 % 12/26/22 08:14 Baso % (Auto) 0.5 % 12/26/22 08:14 Neut # (Auto) 8.97 10^3/uL (1.8-7.7) H 12/26/22 08:14 Lymph # (Auto) 1.0 10^3/uL (0.8-4.8) 12/26/22 08:14 [place] # (Auto) 1.3 10^3/uL (0.2-0.9) H 12/26/22 08:14 Eos # (Auto) 0.0 10^3/uL (0.0-0.8) 12/26/22 08:14 Baso # (Auto) 0.1 10^3/uL (0.0-0.1) 12/26/22 08:14 Nucleated RBC % (auto) 0 % 12/26/22 08:14 Nucleated RBCs # 0.0 /100WBC 12/26/22 08:14 Sodium 135 mmol/L (136-145) L 12/26/22 08:14 Potassium 3.7 mmol/L (3.5-5.1) 12/26/22 08:14 Chloride 100 mmol/L (98-107) 12/26/22 08:14 Carbon Dioxide 24 mmol/L (22-29) 12/26/22 08:14 Anion Gap 14.7 (5-19) 12/26/22 08:14 BUN 10 mg/dL (6-20) 12/26/22 08:14 Creatinine 1.1 mg/dL (0.7-1.2) 12/26/22 08:14 GFR Calculation 73.8 mL/min (90-130) L 12/26/22 08:14 Glucose 112 mg/dL (65-115) 12/26/22 08:14 Calculated Osmolality 280 mOsm/kg (285-295) L 12/26/22 08:14 Lactic Acid 1.6 mmol/L (0.5-2.2) 12/26/22 08:14 Calcium 8.7 mg/dL (8.5-10.5) 12/26/22 08:14 Total Bilirubin 1.2 mg/dL (0.15-1.2) 12/26/22 08:14 AST 22 U/L (0-40) 12/26/22 08:14 ALT 24 U/L (0-41) 12/26/22 08:14 Alkaline Phosphatase 254 U/L (40-130) H 12/26/22 08:14 Total Protein 6.8 g/dL (6.6-8.7) 12/26/22 08:14 Albumin 3.2 g/dL (3.5-5.2) L 12/26/22 08:14 Globulin 3.6 g/dL (1.3-4.6) 12/26/22 08:14 Lipase 230 U/L (13-60) H 12/26/22 08:14 Urine Color Dark yellow (Yellow) 12/26/22 09:00 Urine Appearance Clear (CLEAR) 12/26/22 09:00 Urine pH 6.5 (5-7) 12/26/22 09:00 Ur Specific [place] 1.015 (1.005-1.030) 12/26/22 09:00 Urine Protein Neg (Negative) 12/26/22 09:00 Urine Glucose (UA) Norm (Normal) 12/26/22 09:00 Urine Ketones Negative (Negative) 12/26/22 09:00 Urine Blood Neg (Negative) 12/26/22 09:00 Urine Nitrate Negative (Negative) 12/26/22 09:00 Urine Bilirubin Neg (Negative) 12/26/22 09:00 Urine Urobilinogen 1 mg/dL (Negative) H 12/26/22 09:00 Ur Leukocyte Esterase Negative (Negative) 12/26/22 09:00 All radiology interpretation(s) finalized by discharge Discharge Plan Discharge Patient Disposition: Home Clinical Impression: Orthostatic syncope, Ascending cholangitis, Status post cholecystectomy, History of biliary stent insertion, Abdominal wall cellulitis Condition: Stable Prescriptions: New Bactrim DS 800-160 mg tablet 1 tab PO BID 7 Days Qty: 14 0RF No Action buspirone 30 mg tablet 30 mg PO BID benztropine 1 mg tablet 1 mg PO BEDTIME atorvastatin [Lipitor] 40 mg tablet 40 mg PO BEDTIME fenofibrate nanocrystallized [Tricor] 48 mg tablet 48 mg PO BEDTIME acetaminophen [Tylenol] 325 mg tablet 650 mg PO Q6H PRN (Reason: pain of fever) omeprazole 20 mg capsule,delayed release(DR/EC) 20 mg PO QAM ibuprofen 600 mg tablet 600 mg PO Q8H PRN (Reason: Pain) fluticasone propionate [Flonase Allergy Relief] 50 mcg/actuation spray,suspension 2 spray INTRANASAL QAM (DME) triple antibotic ointment See Rx Instructions .Route .MEDSUPPLY Qty: 1 0RF Rx Instructions: Applied Triple antibiotic ointment to nail beds to keep moisturize. Apply BID for 2 weeks. oxycodone 5 mg tablet 5 mg PO Q4H PRN (Reason: Pain) lamotrigine 200 mg tablet 200 mg PO BID sertraline 100 mg tablet 100 mg PO BID dextromethorphan-guaifenesin [Robitussin-DM] 10-100 mg/5 mL Syrup 10 ml PO Q4H PRN (Reason: Cough) aspirin 81 mg tablet,delayed release (DR/EC) 81 mg PO QAM trazodone 150 mg tablet 150 mg PO BEDTIME docusate sodium 100 mg capsule 100 mg PO BID Stomach Relief 262 mg Tablet 262 mg PO QID PRN (Reason: UPSET STOMACH) calcium carbonate [Tums 500] 500 mg calcium (1,250 mg) Tablet,Chewable 1,000 mg PO Q6H PRN (Reason: Indigestion) prazosin 2 mg capsule 2 mg PO QPM paliperidone palmitate 156 mg/mL Syringe 156 mg IM Q28D Discharge Orders: Discharge ED (Routine); Ordered 12/26/22 Ordered By: Rasta Norris Referrals: Bairon Ferrera DO [Primary Care Provider] - Patient Instructions: Opioid Safety, Pain Management Activity Restrictions/Additional Instructions: Thank you for choosing [facility] for your healthcare needs today. Please realize this is an emergency room and that we are providing you with a medical screening exam and this may not be complete and all inclusive of all the testing and or work up that you may need to determine your ailment or severity of your illness. It is very important that you follow up as instructed or that you return to the Emergency Department should you have concerns or if your condition changes or worsens in any way. You are seen today after syncopal episode. Suspect this was caused by orthostasis. Your laboratory studies were consistent with your recent diagnosis of a sending cholangitis the surgery and biliary stent placement. You did have a mild infection about the incision and drain sites recommend he start on Bactrim DS 1 p.o. twice daily for that follow-up with Dr. Hi as planned. Coding Level of Care Code ED Channel Lip Wetter for Pavan Morataya
--- NOTE | 2022-12-26 08:01 | ECG_ITS ---
[facility] Test Date: 2022-12-26 Pat Name: Ahmet Reina Department: Room: Gender: Male Barber: : 1980 Requested By: Rasta Cheng Order Number: [id number] Juan MD: Clarence Mckeon M.D. Measurements Intervals [place] Rate: 87 P: 54 TN: 143 QRS: 15 QRSD: 104 T: 91 QT: 357 QTc: 431 Interpretive Statements SINUS RHYTHM ABNORMAL QRS-T ANGLE [QRS-T AXIS DIFFERENCE > 60] Compared to ECG 12/01/2022 15:23:46 Sinus bradycardia no longer present T-wave abnormality no longer present Electronically Signed On 12-27-2022 14:11:19 STEM PROCESSING MACHINE OPERATOR by Clarence Mckeon M.D. [email or web address] [email or web address] [id number]
[2022-12-26] MEDS: sodium chloride 0.9% 1,000 ML 999 ML IV (08:12)
[2022-12-26 08:13] VITALS: BP 118/79; RESP 18; O2SAT 98
[2022-12-26 08:29] LABS: Basophils # 0.1 10^3/uL (0.0-0.1); Basophils % 0.5 %; Eosinophils % 0.1 %; Lymphocytes % 8.8 %; Mean Corpuscular HGB Conc 30.6 g/dL (30-55); Mean Corpuscular Hemoglobin 29.9 pg (27-33); Mean Corpuscular Volume 97.8 fl (82-101); Mean Platelet Volume 9.4 fL (7.4-10.4); Monocytes # 1.3 10^3/uL (0.2-0.9); Monocytes % 11.4 %; Neutrophils # 8.97 10^3/uL (1.8-7.7); Neutrophils % 78.4 %; Nucleated Red Blood Cells % 0 %; Platelet Count 272 10^3/cmm (157-399); Red Blood Count 3.68 10^6/uL (3.85-5.65); Red Cell Distribution Width 16.1 % (12.1-15.1); White Blood Count 11.44 10^3/uL (3.29-11.43)
--- NOTE | 2022-12-26 08:31 | CT_ITS ---
WS: [id number] CT ABDOMEN PELVIS TECHNIQUE: Contrast-enhanced CT of the abdomen and pelvis with coronal and sagittal reformatted image s. CLINICAL INFORMATION: abd pain COMPARISON: CT 12/11/22 DLP: 887.[address] scans at [facility] use at least one of these dose optimization techniques: automated e xposure control; mA and/or kV adjustment per patient size (includes targeted exams where dose is matc hed to clinical indication); or iterative reconstruction. FINDINGS: Interval postoperative changes cholecystectomy with common bile duct stent placement. Stent appears i n good position. Air-filled stent. Gallbladder has been removed with drain in good position in the ga llbladder fossa. No gallbladder fossa fluid collections. Small amount of thickening and induration in volving the rectus sheath in the area of drain placement with a small amount of perihepatic fluid lik coleen postoperative. No evidence of drainable abscess or fluid collection. Pneumobilia. Tiny bilateral pleural effusions. Bibasilar atelectasis. Normal GE junction. Air-fluid level in the s tomach. Normal portal veins and splenic vein. Normal pancreas. Normal spleen. Adrenal glands are norm al. Atrophic LEFT kidney. Bilateral renal cysts. Normal caliber abdominal aorta. A few prominent periaortic lymph nodes likely reactive. Mild diffuse bladder wall thickening unchanged. Incidental enchondroma RIGHT intratrochanteric femur. IMPRESSION: 1. Interval postoperative changes cholecystectomy with common bile duct stent in good position. 2. Surgical drain in good position in the gallbladder fossa. No evidence of drainable abscess or flu id collection. 3. Expected postoperative changes with mild induration along the rectus sheath with a trace amount o f fluid. 4. No evidence of subcutaneous abscess or fluid collection 5. Tiny pleural effusions with bibasal atelectasis. 6. No other suspicious changes from previous
[2022-12-26 08:47] LABS: Alanine Aminotransferase 24 U/L (0-41); Albumin Level 3.2 g/dL (3.5-5.2); Alkaline Phosphatase 254 U/L (40-130); Anion Gap 14.7 (5-19); Aspartate Amino Transferase 22 U/L (0-40); Blood Urea Nitrogen 10 mg/dL (6-20); Calcium 8.7 mg/dL (8.5-10.5); Carbon Dioxide 24 mmol/L (22-29); Chloride 100 mmol/L (98-107); Globulin 3.6 g/dL (1.3-4.6); Glomerular Filtration Rate 73.8 mL/min (90-130); Glucose 112 mg/dL (65-115); Lipase 230 U/L (13-60); Osmolality Calculated 280 mOsm/kg (285-295); Potassium 3.7 mmol/L (3.5-5.1); Sodium 135 mmol/L (136-145); Total Bilirubin 1.2 mg/dL (0.15-1.2); Total Protein 6.8 g/dL (6.6-8.7)
[2022-12-26 08:48] LABS: Lactic Sepsis W/Reflex 1.6 mmol/L (0.5-2.2)
[2022-12-26] MEDS: iohexol 350 mg/mL 500 mL Btl (per mL) IV (09:16)
[2022-12-26 09:38] LABS: Add Urine Microscopic? NO; Charge for UA Resulting for Rev
[2022-12-26 09:47] LABS: Bilirubin Urine Neg (Negative); Blood Urine Neg (Negative); Glucose Urine UA Norm (Normal); Ketones Urine Negative (Negative); Nitrate Urine Negative (Negative); Protein Urine Neg (Negative); Specific Gravity, Urine 1.015 (1.005-1.030); Urine Appearance Clear (CLEAR); Urine Color Dark Yellow (Yellow); pH Urine 6.5 (5-7)
[2022-12-26 09:48] LABS: Leukocyte Esterase Urine Negative (Negative); Urobilinogen Urine 1 mg/dL (Negative)
--- NOTE | 2022-12-30 08:47 | PC.NURSE ---
spoke with Pina at [facility], advised to call Madyson pt's PM, preferred pharmacy is [facility]- advised we were calling in an RX that patient will need to start HERIBERTO
== END 2022-12-26 10:30 | disposition home or self-care (01) ==
PROVIDERS: Emergency Provider Family Medicine; PCP Internal Medicine
DX: I95.1 Orthostatic hypotension (principal); K83.09 Other cholangitis; Z90.49 Acquired absence of other specified parts of digestive tract; L03.311 Cellulitis of abdominal wall; Z79.82 Long term (current) use of aspirin; F17.210 Nicotine dependence, cigarettes, uncomplicated; R06.00 Dyspnea, unspecified; T14.8XXA Other injury of unspecified body region, initial encounter; R05.9 Cough, unspecified; X58.XXXA Exposure to other specified factors, initial encounter; L08.9 Local infection of the skin and subcutaneous tissue, unspecified
CPT/HCPCS: 36415; 71045; 74177; 80053; 81003; 83605; 83690; 85025; 87040; 87070; 87075; 87077; 87186; 87205; 93005; 99204; 99285; J7030; Q9967

== ENCOUNTER → 2023-01-01 13:20 | Outpatient (BNVA) | payer MEDICAID, SELFPAY | PROVIDERS: PCP Internal Medicine; Visit Provider Surgery | DX: Z90.49 Acquired absence of other specified parts of digestive tract (principal); Z98.890 Other specified postprocedural states | CPT/HCPCS: 99214 ==

== ENCOUNTER 2023-01-12 19:04 | Emergency (ER) | payer MEDICAID, SELFPAY ==
[2023-01-12 19:05] VITALS: BP 137/98; PULSE 78; TEMP 36.6; O2SAT 95; BMI 32.2
--- NOTE | 2023-01-12 19:30 | XRR_ITS ---
PROCEDURE INFORMATION: Exam: XR Chest Exam date and time: 01/12/2023 7:36 PM Age: 42 years old Clinical indication: Chest wall pain; Prior surgery; Surgery date: 6+ months; Surgery type: Gallbladder; Additional info: Chest discomfort TECHNIQUE: Imaging protocol: Radiologic exam of the chest. Views: 1 view. COMPARISON: CR XR chest 1V portable [id number] 12/26/2022 8:22 AM FINDINGS: Lungs: Right hilar to lower lobe atelectasis versus infiltrate. Pleural spaces: Unremarkable. No pleural effusion. No pneumothorax. Heart/Mediastinum: Cardiomegaly. Bones/joints: Unremarkable. XR/XR chest 1V [id number] IMPRESSION: 1. Right hilar to lower lobe atelectasis versus infiltrate. 2. Cardiomegaly.
--- NOTE | 2023-01-12 19:52 | ECG_ITS ---
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 Measurements Intervals [place] Rate: 68 P: 54 WI: 160 QRS: 3 QRSD: 83 T: 51 QT: 379 QTc: 403 Interpretive Statements SINUS RHYTHM POSSIBLE RIGHT VENTRICULAR CONDUCTION DELAY [RSR (QR) IN V1/V2] Compared to ECG 12/26/2022 08:01:43 No significant changes Electronically Signed On 01-12-2023 21:32:59 SIZE MAKER by Gracy Alan M.D. [email or web address]
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
== END 2023-01-12 20:44 | disposition home or self-care (01) ==
PROVIDERS: Emergency Provider Emergency Medicine; PCP Internal Medicine
DX: G89.18 Other acute postprocedural pain (principal); R10.9 Unspecified abdominal pain; Z79.82 Long term (current) use of aspirin; I51.7 Cardiomegaly; F17.210 Nicotine dependence, cigarettes, uncomplicated
CPT/HCPCS: 71045; 93005; 99284

== ENCOUNTER 2023-10-12 06:00 | Outpatient (RCR) | payer MEDICAID, SELFPAY | END 2023-11-10 23:59 | disposition home or self-care (01) | LOC: APT 06:00 | PROVIDERS: Visit Provider Nurse Practitioner Family | DX: M54.50 Low back pain, unspecified (principal); G89.29 Other chronic pain | CPT/HCPCS: 97110; 97161; 97530 ==

== ENCOUNTER 2023-11-11 06:00 | Outpatient (RCR) | payer MEDICAID, SELFPAY | END 2023-12-11 23:59 | disposition home or self-care (01) | LOC: APT 06:00 | PROVIDERS: Visit Provider Nurse Practitioner Family | DX: M54.50 Low back pain, unspecified (principal); G89.29 Other chronic pain | CPT/HCPCS: 97110; 97530 ==

== ENCOUNTER 2024-03-13 06:00 | Outpatient (RCR) | payer MEDICARE, MEDICAID, SELFPAY | END 2024-04-09 23:59 | disposition home or self-care (01) | LOC: APT 06:00 | PROVIDERS: PCP Nurse Practitioner Family; Visit Provider Nurse Practitioner Family | DX: M25.511 Pain in right shoulder (principal) | CPT/HCPCS: 97161 ==

== ENCOUNTER 2024-03-21 21:29 | Emergency (ER) | payer MEDICARE, MEDICAID, SELFPAY ==
[2024-03-21 21:33] VITALS: BP 161/107; PULSE 80; RESP 17; TEMP 36.4; O2SAT 97; BMI 32.5
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
[2024-03-21 22:02] VITALS: PULSE 79; RESP 16; O2SAT 98
[2024-03-21 22:30] VITALS: PULSE 60; RESP 18; O2SAT 99
--- NOTE | 2024-03-21 23:26 | XRR_ITS ---
PROCEDURE INFORMATION: Exam: XR Right Finger(s) Exam date and time: 03/21/2024 11:29 PM Age: 44 years old Clinical indication: Injury or trauma; Right; Ring finger; Check post reduction of RT 4th digit pip dislocation; Additional info: Post reduction, 4th digit (right ring finger) TECHNIQUE: Imaging protocol: Radiologic exam of the right fingers. Views: Minimum 2 views. COMPARISON: CR (UP EX, ) 03/21/2024 9:41 PM FINDINGS: Bones/joints: Anatomic alignment of the right 4th digit status post reduction. No fracture identified. Soft tissues: Normal. XR/XR finger RT min 2V [id number] IMPRESSION: 1. Anatomic alignment of the right 4th digit status post reduction. 2. No fracture identified.
[2024-03-21 23:30] VITALS: PULSE 75; RESP 16; O2SAT 97
[2024-03-22 00:30] VITALS: PULSE 68; RESP 15; O2SAT 96
[2024-03-22] MEDS: BUPivacaine 0.5% INJ 10 mL 3 ML INJECTION (00:30)
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
== END 2024-03-22 01:15 | disposition home or self-care (01) ==
PROVIDERS: Emergency Provider Physician Assistant; PCP Nurse Practitioner Family
DX: S63.254A Unspecified dislocation of right ring finger, initial encounter (principal); S00.81XA Abrasion of other part of head, initial encounter; S00.83XA Contusion of other part of head, initial encounter; Z79.82 Long term (current) use of aspirin; F17.210 Nicotine dependence, cigarettes, uncomplicated; W51.XXXA Accidental striking against or bumped into by another person, initial encounter
CPT/HCPCS: 12345; 26770; 73130; 73140; 99284; J3490

== ENCOUNTER 2024-04-10 06:30 | Outpatient (RCR) | payer MEDICARE, MEDICAID, SELFPAY | END 2024-05-10 23:59 | disposition home or self-care (01) | LOC: APT 06:30 | PROVIDERS: PCP Nurse Practitioner Family; Visit Provider Nurse Practitioner Family | DX: M25.511 Pain in right shoulder (principal) | CPT/HCPCS: 97110 ==

== ENCOUNTER 2024-05-11 05:00 | Outpatient (RCR) | payer MEDICARE, MEDICAID, SELFPAY | END 2024-06-09 23:59 | disposition home or self-care (01) | LOC: APT 05:00 | PROVIDERS: PCP Nurse Practitioner Family; Visit Provider Nurse Practitioner Family | DX: M25.511 Pain in right shoulder (principal) | CPT/HCPCS: 97110 ==

== ENCOUNTER → 2024-05-25 13:38 | Outpatient (BNVA) | payer MEDICARE, MEDICAID, SELFPAY | PROVIDERS: PCP Nurse Practitioner Family; Visit Provider Orthopaedic Surgery | DX: S63.254A Unspecified dislocation of right ring finger, initial encounter (principal); W19.XXXA Unspecified fall, initial encounter | CPT/HCPCS: 99204 ==

== ENCOUNTER 2024-06-10 05:00 | Outpatient (RCR) | payer MEDICARE, MEDICAID, SELFPAY | END 2024-07-10 23:59 | disposition home or self-care (01) | LOC: APT 05:00 | PROVIDERS: PCP Nurse Practitioner Family; Visit Provider Nurse Practitioner Family | DX: M25.511 Pain in right shoulder (principal) | CPT/HCPCS: 97110 ==

== ENCOUNTER 2024-06-23 20:00 | Outpatient (CLI) | payer MEDICARE, MEDICAID, SELFPAY | END 2024-06-23 20:01 | disposition home or self-care (01) | LOC: SLEEP 06-24 03:33 | PROVIDERS: PCP Nurse Practitioner Family; Referring Provider Nurse Practitioner Family; Visit Provider Nurse Practitioner Family | DX: G47.33 Obstructive sleep apnea (adult) (pediatric) (principal); G47.36 Sleep related hypoventilation in conditions classified elsewhere | CPT/HCPCS: 95811 ==

== ENCOUNTER 2024-09-25 20:29 | Emergency (ER) | payer MEDICARE, MEDICAID, SELFPAY ==
[2024-09-25 21:01] VITALS: BP 125/71; PULSE 77; RESP 18; TEMP 36.7; O2SAT 96; BMI 35.9
[2024-09-25 21:45] VITALS: BP 133/82; O2SAT 92
[2024-09-25] MEDS: tetanus-dipt-pertussis 0.5 mL SDV IM (22:22)
[2024-09-25 22:54] VITALS: BP 133/82; PULSE 76; RESP 18; O2SAT 95
--- NOTE | 2024-09-25 23:01 | W.ED.WOUNDLC ---
Documented by User: TAMMY House 09/25/24 23:03 HPI - Wound/Laceration General: Chief Complaint: Wound/Laceration Stated Complaint: Cut across rt forearm Time Seen by Provider: 09/25/24 21:21 Source: patient and family Mode of arrival: ambulatory Limitations: no limitations History of Present Illness: Patient is a 44-year-old male with intellectual disability presenting for laceration to right forearm. States that he broke a coffee mug and the shattered piece caused a laceration, bleeding controlled on arrival. Tetanus not up-to-date. No other symptoms, no neurovascular symptoms. Onset (ago): hour(s) Extremity Location: Right: forearm Place: home Patient tetanus UTD: No Context: accidental Associated symptoms: Denies chills, fever(s), nausea or vomiting Related Data Home Medications ?Medication ?Instructions ?Recorded ?Confirmed acetaminophen 325 mg tablet 650 mg PO Q6H PRN pain of fever 02/18/19 09/16/24 (Tylenol) atorvastatin 40 mg tablet (Lipitor) 40 mg PO BEDTIME 02/18/19 09/16/24 fenofibrate nanocrystallized 48 mg 48 mg PO BEDTIME 02/18/19 09/16/24 tablet (Tricor) fluticasone propionate 50 2 spray intranasal QAM 02/18/19 09/16/24 mcg/actuation nasal spray,suspension (Flonase Allergy Relief) ibuprofen 600 mg tablet 600 mg PO Q8H PRN Pain 02/18/19 09/16/24 omeprazole 20 mg capsule,delayed 20 mg PO QAM 02/18/19 09/16/24 release benztropine 1 mg tablet 1 mg PO BEDTIME 10/23/20 09/16/24 buspirone 30 mg tablet 30 mg PO BID 10/23/20 09/16/24 aspirin 81 mg tablet,delayed 81 mg PO QAM 12/11/22 09/16/24 release bismuth subsalicylate 262 mg 262 mg PO QID PRN UPSET STOMACH 12/11/22 09/16/24 tablet (Stomach Relief) calcium carbonate 1,000 mg PO Q6H PRN Indigestion 12/11/22 09/16/24 dextromethorphan-guaifenesin 10 10 ml PO Q4H PRN Cough 12/11/22 09/16/24 mg-100 mg/5 mL oral syrup docusate sodium 100 mg capsule 100 mg PO BID 12/11/22 09/16/24 lamotrigine 200 mg tablet 200 mg PO BID 12/11/22 09/16/24 paliperidone palmitate 156 mg/mL 156 mg IM Q28D 12/11/22 09/16/24 intramuscular syringe prazosin 2 mg capsule 2 mg PO QPM 12/11/22 09/16/24 sertraline 100 mg tablet 100 mg PO BID 12/11/22 09/16/24 trazodone 150 mg tablet 150 mg PO BEDTIME 12/11/22 09/16/24 oxycodone 5 mg tablet 5 mg PO Q4H PRN Pain 12/26/22 09/16/24 risperidone 1 mg tablet 1 mg PO DAILY 09/16/24 09/16/24 sertraline 100 mg tablet 100 mg PO BID 09/16/24 09/16/24 Previous Rx's ?Medication ?Instructions ?Recorded triple antibotic ointment #1 ea 06/06/21 promethazine-DM 6.25 mg-15 mg/5 mL 5 ml PO Q4H PRN cough #118 mL 09/16/24 oral syrup cephalexin 500 mg capsule 500 mg PO BID 5 days #10 caps 09/25/24 Allergies Allergy/AdvReac Type Severity Reaction Status Date / Time No Known Allergies Allergy Verified 09/16/24 10:30 Review of Systems General: Reports: 10 or more systems reviewed and unremarkable except in HPI and below Const: Denies: fever(s) or chills Card: Denies: chest pain Resp: Denies: dyspnea GI: Denies: abdominal pain, nausea, vomiting or diarrhea Musc: Denies: extremity pain or joint pain Skin/Breast: Reports: new lesions (Laceration right forearm); Denies: rash, skin pain or skin tenderness Neuro: Denies: headache(s) PFSH ED PFSH: Medical History Unspecified intellectual disabilities Cigarette nicotine dependence Obstructive sleep apnea Chronic post-traumatic stress disorder Schizoaffective disorder, depressive type Social History Smoking and tobacco/nicotine status: current every day tobacco/nicotine user cigarettes Packs smoked per day: 0.5 Quit status (tobacco/nicotine): considering quitting Second hand smoke exposure: No Physical Exam Const: COMMON NORMALS: no acute distress, average body habitus, patient oriented x3, no limitations, healthy appearing, alert and well nourished HENMT: COMMON NORMALS: normocephalic and atraumatic HEAD & SCALP: normocephalic and atraumatic Neck/C-Spine: COMMON NORMALS: full ROM, no lymphadenopathy, supple and no meningeal signs Resp: COMMON NORMALS: normal respiratory effort, No use of accessory muscles and clear to auscultation bilaterally AUSCULTATION: clear to auscultation bilaterally Cardio: COMMON NORMALS: regular rate and regular rhythm RATE: regular rate RHYTHM: regular rhythm Extremity: COMMON NORMALS: full ROM and capillary refill normal Neuro: COMMON NORMALS: patient oriented x3 SENSORIUM/ORIENTATION: Yes alert MENINGEAL SIGNS: Yes no meningeal signs Skin: COMMON NORMALS: turgor normal NARRATIVE SKIN EXAM: Approximately 7 cm linear and superficial laceration to right forearm with no active bleeding, foreign body, or contamination GENERAL SKIN EXAM: turgor normal Procedures Laceration Laceration 1: Site: upper extremity Side (If applicable): right Size (cm): 7 Description: linear Depth: simple, single layer Local Anesthetic: lidocaine 1% and with epi Amount of anesthesia used (mL): 7 Pre-repair: wound explored Skin layer closed with: nylon Size (cm): 4-0 Number of sutures: 7 Technique: simple, interrupted Course Vital Signs: Vital signs: Vital Signs Temperature 98.0 F 09/25/24 21:01 Pulse Rate 76 09/25/24 22:54 Respiratory Rate 18 09/25/24 22:54 Blood Pressure 133/82 09/25/24 22:54 Pulse Oximetry 95 09/25/24 22:54 Oxygen Delivery Me thod Room Air 09/25/24 21:01 MDM - Wound/Laceration Medical Decision Making Simple superficial laceration repaired here in the emergency department, see the procedure note. Neurovascular exam is intact. Tetanus is updated here. Prophylactic Keflex will be started, he will watch for signs of infection and other general return precautions given. No radiology studies performed this visit Discharge Plan Discharge Patient Disposition: Home Clinical Impression: Laceration of right forearm Qualifiers: Encounter type: initial encounter Qualified Code(s): S51.811A - Laceration without foreign body of right forearm, initial encounter Condition: Stable Prescriptions: New cephalexin 500 mg capsule 500 mg PO BID 5 Days Qty: 10 0RF No Action buspirone 30 mg tablet 30 mg PO BID benztropine 1 mg tablet 1 mg PO BEDTIME atorvastatin [Lipitor] 40 mg tablet 40 mg PO BEDTIME fenofibrate nanocrystallized [Tricor] 48 mg tablet 48 mg PO BEDTIME acetaminophen [Tylenol] 325 mg tablet 650 mg PO Q6H PRN (Reason: pain of fever) omeprazole 20 mg capsule,delayed release(DR/EC) 20 mg PO QAM ibuprofen 600 mg tablet 600 mg PO Q8H PRN (Reason: Pain) fluticasone propionate [Flonase Allergy Relief] 50 mcg/actuation spray,suspension 2 spray INTRANASAL QAM sertraline 100 mg tablet 100 mg PO BID risperidone 1 mg tablet 1 mg PO DAILY promethazine-DM 6.25-15 mg/5 mL syrup 5 ml PO Q4H PRN (Reason: cough) Qty: 118 0RF Rx Instructions: Do not exceed more than 30ml/24hour period (6 doses) (DME) triple antibotic ointment See Rx Instructions .Route .MEDSUPPLY Qty: 1 0RF Rx Instructions: Applied Triple antibiotic ointment to nail beds to keep moisturize. Apply BID for 2 weeks. oxycodone 5 mg tablet 5 mg PO Q4H PRN (Reason: Pain) lamotrigine 200 mg tablet 200 mg PO BID sertraline 100 mg tablet 100 mg PO BID dextromethorphan-guaifenesin [Robitussin-DM] 10-100 mg/5 mL Syrup 10 ml PO Q4H PRN (Reason: Cough) aspirin 81 mg tablet,delayed release (DR/EC) 81 mg PO QAM trazodone 150 mg tablet 150 mg PO BEDTIME docusate sodium 100 mg capsule 100 mg PO BID Stomach Relief 262 mg Tablet 262 mg PO QID PRN (Reason: UPSET STOMACH) calcium carbonate [Tums 500] 500 mg calcium (1,250 mg) Tablet,Chewable 1,000 mg PO Q6H PRN (Reason: Indigestion) prazosin 2 mg capsule 2 mg PO QPM paliperidone palmitate 156 mg/mL Syringe 156 mg IM Q28D Discharge Orders: Discharge ED (Routine); Ordered 09/25/24 Ordered By: Timothy Heller Referrals: Alexia Tao FNP [Primary Care Provider, Unknown] Patient Instructions: Patient Portal & [facility] Instructions Activity Restrictions/Additional Instructions: Laceration Discharge Instructions Diagnosis: Simple laceration to right forearm, repaired with sutures. Wound Care: - Keep the wound clean and covered with a sterile, non-adherent dressing. Change the dressing daily or if it becomes wet or soiled. - The wound may be gently washed with tap water after the first 24 hours; brief exposure to water does not increase infection risk. - Avoid soaking the wound (e.g., baths, swimming) until sutures are removed and the wound is fully healed. Signs of Infection: - Monitor for increasing redness, swelling, warmth, pain, purulent drainage, or fever. If any of these occur, prompt evaluation is indicated. Suture Removal: - Sutures should be removed at the time recommended for forearm lacerations, typically 7?10 days post-repair, depending on wound healing and location. Antibiotic Therapy: - Prophylactic cephalexin (Keflex) 500 mg orally twice daily for 5 days has been prescribed. This exceeds the duration recommended by the [place] [employer] for simple lacerations, which generally do not require antibiotics unless the wound is complex or the patient is high-risk. If antibiotics are used, a short course (<=4 hours) is suggested for high-risk cases. Monitor for adverse reactions and discontinue if significant side effects occur. Tetanus Prophylaxis: - Tetanus vaccination was updated today per CDC and Advisory Committee on Immunization Practices guidelines, which recommend a booster if >5 years since last dose for contaminated wounds. Activity: - Limit strenuous activity involving the affected arm until sutures are removed and wound healing is confirmed. Follow-Up: - Return for suture removal as scheduled. - Seek medical attention for signs of infection, wound dehiscence, or other concerns. Patient Context: - No high-risk comorbidities or wound features were documented that would necessitate extended antibiotic prophylaxis. The management plan aligns with current evidence-based recommendations for simple, non-contaminated lacerations. References: [place] [employer], CDC, Advisory Committee on Immunization Practices, [employer] of [place], [place] [employer], The Journal of Emergency Medicine. 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 [employer] Documented by User: Rj Dobson DO 09/26/24 00:26 HPI - Wound/Laceration General: Chief Complaint: Wound/Laceration Stated Complaint: Cut across rt forearm Time Seen by Provider: 09/25/24 21:21 Related Data Home Medications ?Medication ?Instructions ?Recorded ?Confirmed acetaminophen 325 mg tablet 650 mg PO Q6H PRN pain of fever 02/18/19 09/16/24 (Tylenol) atorvastatin 40 mg tablet (Lipitor) 40 mg PO BEDTIME 02/18/19 09/16/24 fenofibrate nanocrystallized 48 mg 48 mg PO BEDTIME 02/18/19 09/16/24 tablet (Tricor) fluticasone propionate 50 2 spray intranasal QAM 02/18/19 09/16/24 mcg/actuation nasal spray,suspension (Flonase Allergy Relief) ibuprofen 600 mg tablet 600 mg PO Q8H PRN Pain 02/18/19 09/16/24 omeprazole 20 mg capsule,delayed 20 mg PO QAM 02/18/19 09/16/24 release benztropine 1 mg tablet 1 mg PO BEDTIME 10/23/20 09/16/24 buspirone 30 mg tablet 30 mg PO BID 10/23/20 09/16/24 aspirin 81 mg tablet,delayed 81 mg PO QAM 12/11/22 09/16/24 release bismuth subsalicylate 262 mg 262 mg PO QID PRN UPSET STOMACH 12/11/22 09/16/24 tablet (Stomach Relief) calcium carbonate 1,000 mg PO Q6H PRN Indigestion 12/11/22 09/16/24 dextromethorphan-guaifenesin 10 10 ml PO Q4H PRN Cough 12/11/22 09/16/24 mg-100 mg/5 mL oral syrup docusate sodium 100 mg capsule 100 mg PO BID 12/11/22 09/16/24 lamotrigine 200 mg tablet 200 mg PO BID 12/11/22 09/16/24 paliperidone palmitate 156 mg/mL 156 mg IM Q28D 12/11/22 09/16/24 intramuscular syringe prazosin 2 mg capsule 2 mg PO QPM 12/11/22 09/16/24 sertraline 100 mg tablet 100 mg PO BID 12/11/22 09/16/24 trazodone 150 mg tablet 150 mg PO BEDTIME 12/11/22 09/16/24 oxycodone 5 mg tablet 5 mg PO Q4H PRN Pain 12/26/22 09/16/24 risperidone 1 mg tablet 1 mg PO DAILY 09/16/24 09/16/24 sertraline 100 mg tablet 100 mg PO BID 09/16/24 09/16/24 Previous Rx's ?Medication ?Instructions ?Recorded triple antibotic ointment #1 ea 06/06/21 promethazine-DM 6.25 mg-15 mg/5 mL 5 ml PO Q4H PRN cough #118 mL 09/16/24 oral syrup cephalexin 500 mg capsule 500 mg PO BID 5 days #10 caps 09/25/24 Allergies Allergy/AdvReac Type Severity Reaction Status Date / Time No Known Allergies Allergy Verified 09/16/24 10:30 [facility] ED PFSH: Medical History Unspecified intellectual disabilities Cigarette nicotine dependence Obstructive sleep apnea Chronic post-traumatic stress disorder Schizoaffective disorder, depressive type Social History Smoking and tobacco/nicotine status: current every day tobacco/nicotine user cigarettes Packs smoked per day: 0.5 Quit status (tobacco/nicotine): considering quitting Second hand smoke exposure: No Course Vital Signs: Vital signs: Vital Signs Temperature 98.0 F 09/25/24 21:01 Pulse Rate 76 09/25/24 22:54 Respiratory Rate 18 09/25/24 22:54 Blood Pressure 133/82 09/25/24 22:54 Pulse Oximetry 95 09/25/24 22:54 Oxygen Delivery Me thod Room Air 09/25/24 21:01 MDM - Wound/Laceration Medical Decision Making Simple superficial laceration repaired here in the emergency department, see the procedure note. Neurovascular exam is intact. Tetanus is updated here. Prophylactic Keflex will be started, he will watch for signs of infection and other general return precautions given. This patient was originally seen by Mr. Pina PA-C. I agree with his history, evaluation, and management. Discharge Plan Discharge Patient Disposition: Home Clinical Impression: Laceration of right forearm Qualifiers: Encounter type: initial encounter Qualified Code(s): S51.811A - Laceration without foreign body of right forearm, initial encounter Condition: Stable Prescriptions: New cephalexin 500 mg capsule 500 mg PO BID 5 Days Qty: 10 0RF No Action buspirone 30 mg tablet 30 mg PO BID benztropine 1 mg tablet 1 mg PO BEDTIME atorvastatin [Lipitor] 40 mg tablet 40 mg PO BEDTIME fenofibrate nanocrystallized [Tricor] 48 mg tablet 48 mg PO BEDTIME acetaminophen [Tylenol] 325 mg tablet 650 mg PO Q6H PRN (Reason: pain of fever) omeprazole 20 mg capsule,delayed release(DR/EC) 20 mg PO QAM ibuprofen 600 mg tablet 600 mg PO Q8H PRN (Reason: Pain) fluticasone propionate [Flonase Allergy Relief] 50 mcg/actuation spray,suspension 2 spray INTRANASAL QAM sertraline 100 mg tablet 100 mg PO BID risperidone 1 mg tablet 1 mg PO DAILY promethazine-DM 6.25-15 mg/5 mL syrup 5 ml PO Q4H PRN (Reason: cough) Qty: 118 0RF Rx Instructions: Do not exceed more than 30ml/24hour period (6 doses) (DME) triple antibotic ointment See Rx Instructions .Route .MEDSUPPLY Qty: 1 0RF Rx Instructions: Applied Triple antibiotic ointment to nail beds to keep moisturize. Apply BID for 2 weeks. oxycodone 5 mg tablet 5 mg PO Q4H PRN (Reason: Pain) lamotrigine 200 mg tablet 200 mg PO BID sertraline 100 mg tablet 100 mg PO BID dextromethorphan-guaifenesin [Robitussin-DM] 10-100 mg/5 mL Syrup 10 ml PO Q4H PRN (Reason: Cough) aspirin 81 mg tablet,delayed release (DR/EC) 81 mg PO QAM trazodone 150 mg tablet 150 mg PO BEDTIME docusate sodium 100 mg capsule 100 mg PO BID Stomach Relief 262 mg Tablet 262 mg PO QID PRN (Reason: UPSET STOMACH) calcium carbonate [Tums 500] 500 mg calcium (1,250 mg) Tablet,Chewable 1,000 mg PO Q6H PRN (Reason: Indigestion) prazosin 2 mg capsule 2 mg PO QPM paliperidone palmitate 156 mg/mL Syringe 156 mg IM Q28D Discharge Orders: Discharge ED (Routine); Ordered 09/25/24 Ordered By: Timothy Heller Referrals: Alexia Tao FNP [Primary Care Provider, Unknown] Patient Instructions: Patient Portal & [facility] Instructions Activity Restrictions/Additional Instructions: Laceration Discharge Instructions Diagnosis: Simple laceration to right forearm, repaired with sutures. Wound Care: - Keep the wound clean and covered with a sterile, non-adherent dressing. Change the dressing daily or if it becomes wet or soiled. - The wound may be gently washed with tap water after the first 24 hours; brief exposure to water does not increase infection risk. - Avoid soaking the wound (e.g., baths, swimming) until sutures are removed and the wound is fully healed. Signs of Infection: - Monitor for increasing redness, swelling, warmth, pain, purulent drainage, or fever. If any of these occur, prompt evaluation is indicated. Suture Removal: - Sutures should be removed at the time recommended for forearm lacerations, typically 7?10 days post-repair, depending on wound healing and location. Antibiotic Therapy: - Prophylactic cephalexin (Keflex) 500 mg orally twice daily for 5 days has been prescribed. This exceeds the duration recommended by the [place] [employer] for simple lacerations, which generally do not require antibiotics unless the wound is complex or the patient is high-risk. If antibiotics are used, a short course (<=4 hours) is suggested for high-risk cases. Monitor for adverse reactions and discontinue if significant side effects occur. Tetanus Prophylaxis: - Tetanus vaccination was updated today per CDC and Advisory Committee on Immunization Practices guidelines, which recommend a booster if >5 years since last dose for contaminated wounds. Activity: - Limit strenuous activity involving the affected arm until sutures are removed and wound healing is confirmed. Follow-Up: - Return for suture removal as scheduled. - Seek medical attention for signs of infection, wound dehiscence, or other concerns. Patient Context: - No high-risk comorbidities or wound features were documented that would necessitate extended antibiotic prophylaxis. The management plan aligns with current evidence-based recommendations for simple, non-contaminated lacerations. References: [place] [employer], CDC, Advisory Committee on Immunization Practices, [employer] [place], [place] [employer], The Journal of Emergency Medicine. 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 [place]
== END 2024-09-25 23:04 | disposition home or self-care (01) ==
PROVIDERS: Emergency Provider Physician Assistant; PCP Nurse Practitioner Family
DX: S51.811A Laceration without foreign body of right forearm, initial encounter (principal); Z79.82 Long term (current) use of aspirin; W26.8XXA Contact with other sharp object(s), not elsewhere classified, initial encounter; F17.210 Nicotine dependence, cigarettes, uncomplicated
CPT/HCPCS: 12002; 90715; 99283; J9999